=== PATIENT | female | born 1990 | race Hispanic/Latino ===

== ENCOUNTER 2018-08-22 17:24 | Emergency (ER) | payer OTHER ==
[2018-08-22] MEDS ORDERED: KETOROLAC 30 MG/ML INJ ONE (18:01)
[2018-08-22] MEDS ORDERED: ONDANSETRON 4 MG/2 ML VIAL ONE (18:02)
[2018-08-22] MEDS ORDERED: FAMOTIDINE 20 MG/2 ML VIAL IV ONE (18:02)
[2018-08-22] MEDS ORDERED: NA CHLORIDE 0.9% 1,000 ML ONE (18:02)
[2018-08-22 18:16] LABS: Absolute Lymphocytes (CBC) 1.9 K/uL (0.7-4.9); Absolute Monocytes 0.5 K/uL (0.1-1.3); Absolute Neutrophil 6.3 K/uL (1.8-8.0); Basophils % 0.4 % (0-1.3); Eosinophils % 1.1 % (0-4.4); Hematocrit 38.6 % (36.0-45.0); Lymphocytes % 21.2 % (15.3-44.8); MPV 7.9 fL (7.6-11.3); Monocytes % 5.3 % (3.3-12.3); RBC Red Blood Cell Count 4.49 M/uL (3.86-4.86)
[2018-08-22 18:20] LABS: Urine Blood 2+ (NEG); Urine Glucose NEGATIVE (NEG); Urine Protein NEGATIVE (NEG)
[2018-08-22 18:26] LABS: Urine Bacteria 20-50 /HPF (<20); Urine Culture Reflex Order REFLEXED; Urine RBC 20-50 /HPF (NONE SEEN)
[2018-08-22 18:29] LABS: ALT/SGPT 27 U/L (12-78); AST/SGOT 13 U/L (15-37); Albumin 3.7 g/dL (3.4-5.0); Alkaline Phosphatase 95 U/L (45-117); BUN Blood Urea Nitrogen 13 mg/dL (7-18); Bicarbonate 29 mmol/L (21-32); Bilirubin Direct < 0.1 mg/dL (0-0.2); Bilirubin Total 0.3 mg/dL (0.2-1.0); Glucose Level 95 mg/dL (74-106); Lipase 103 U/L (73-393); Potassium 3.5 mmol/L (3.5-5.1); Protein, Total 7.7 g/dL (6.4-8.2); Sodium Level 138 mmol/L (136-145)
--- NOTE | 2018-08-22 18:38 | RAD REPORT ---
EXAM DESCRIPTION: CT - Stone Protocol - 08/22/2018 6:25 pm CLINICAL HISTORY: Bilateral lower back pain COMPARISON: None. TECHNIQUE: Axial 5 mm thick images were obtained without oral or IV contrast. The [id number] span s the entirety of the system partially obscuring uppermost abdomen and lung bases. All CT scans are performed using dose optimization technique as appropriate and may include automated exposure control or mA/KV adjustment according to patient size. FINDINGS: No hydronephrosis and no obstructing ureteral calculi. Patient has a punctate 2 millimeter calcification lower pole calyx on the right and a 4 millimeter nonobstructing calculus lower pole ca lyx on the left. There is a 2 millimeter calcification upper pole on the left. No suspicious renal ma sses. Isodense masses and pyelonephritis are not excluded on a stone protocol CT scan. Contracted uri nary bladder shows no calculus. Bladder assessment is limited. No significant adrenal finding. Uterus and ovaries show no suspicious findings. Imaged portions of the liver, spleen and pancreas show no suspicious findings on non-contrast imaging . Liver shows mild fatty infiltration. Cholecystectomy clips are present with no biliary tree dilatat ion. No suspicious bowel findings. No hernia, mass or bulky lymphadenopathy noted. No free air, free fluid or inflammatory stranding. No significant bony abnormality. No muscle or soft tissue suspicious finding. IMPRESSION: No hydronephrosis, obstructing calculus or acute finding. Patient has nonobstructing 2-4 mm calyx calculi in each kidney. Isodense masses and pyelonephritis are not excluded on stone protocol technique.Overall assessment is limited in the absence of IV contrast. Mild fatty infiltration of the liver. Cholecystectomy clips are present with no biliary tree dilatati on.
[2018-08-22] MEDS ORDERED: MORPHINE 4 MG/ML SYR ONE (18:54)
[2018-08-22] MEDS ORDERED: CEFTRIAXONE/SWI 1gm 1 GM/10 ML SYR ONE (18:59)
--- NOTE | 2018-08-22 19:12 | EDPHYS ---
Physician Documentation [facility] Name: Mitzi Betancourt Age: 28 yrs Sex: Female : 1990 Arrival Date: 08/22/2018 Time: 17:28 Bed 19 Private MD: MARIA LUISA Physician Trell Camacho HPI: 08/22 17:49 This 28 yrs old Female presents to ER via Ambulatory with complaints of cp Possible Kidney Stone, Vomiting. 17:49 The patient complains of pain in the left flank. cp 17:50 The pain radiates to the back and abdomen. cp 17:50 Onset: The symptoms/episode began/occurred 2 day(s) ago. Associated signs and symptoms: cp Pertinent positives: nausea, vomiting, Pertinent negatives: diarrhea, dizziness, fever, pain radiating to the lower extremities. Historical: - Allergies: 17:31 PENICILLINS; sv - PSHx: 17:31 Cholecystectomy; ; sv - Immunization history:: Adult Immunizations up to date. - Social history:: Smoking status: Patient/guardian denies using tobacco. - Ebola Screening: : Patient negative for fever greater than or equal to 101.5 degrees Fahrenheit, and additional compatible Ebola Virus Disease symptoms Patient denies exposure to infectious person Patient denies travel to an Ebola-affected area in the 21 days before illness onset No symptoms or risks identified at this time. ROS: 18:00 Constitutional: Negative for body aches, chills, fever, poor PO intake. cp 18:00 Eyes: Negative for injury, pain, redness, and discharge. cp 18:00 ENT: Negative for drainage from ear(s), ear pain, sore throat, difficulty swallowing, difficulty handling secretions. 18:00 Cardiovascular: Negative for chest pain, edema, palpitations. 18:00 Respiratory: Negative for cough, shortness of breath, wheezing. 18:00 Abdomen/GI: Positive for abdominal pain, nausea and vomiting, Negative for diarrhea, constipation, black/tarry stool, rectal bleeding. 18:00 Back: Positive for pain at rest, pain with movement, of the low back area and mid back area. 18:00 Skin: Negative for cellulitis, rash. 18:00 Neuro: Negative for altered mental status, headache, weakness. 18:00 All other systems are negative. Exam: 18:05 Constitutional: The patient appears in no acute distress, alert, awake, non-toxic, well cp developed, well nourished, uncomfortable. 18:05 Head/Face: Normocephalic, atraumatic. Eyes: Pupils equal round and reactive to light, cp extra-ocular motions intact. Lids and lashes normal. Conjunctiva and sclera are non-icteric and not injected. Cornea within normal limits. Periorbital areas with no swelling, redness, or edema. ENT: Nares patent. No nasal discharge, no septal abnormalities noted. Tympanic membranes are normal and external auditory canals are clear. Oropharynx with no redness, swelling, or masses, exudates, or evidence of obstruction, uvula midline. Mucous membranes moist. Chest/axilla: Normal chest wall appearance and motion. Nontender with no deformity. No lesions are appreciated. 18:05 Cardiovascular: Rate: tachycardic, Rhythm: regular, Edema: is not appreciated. 18:05 Respiratory: the patient does not display signs of respiratory distress, Respirations: normal, no use of accessory muscles, no retractions, no splinting, no tachypnea, labored breathing, is not present, Breath sounds: are clear throughout, no decreased breath sounds, no stridor, no wheezing. 18:05 Abdomen/GI: Inspection: abdomen appears normal, Bowel sounds: active, all quadrants, Palpation: soft, in all quadrants, mild abdominal tenderness, in all quadrants, rebound tenderness, is not appreciated, involuntary guarding, is not appreciated. 18:05 Back: pain, that is moderate, of the low back area and mid back area, ROM is painful, Straight leg raises: of both lower extremities does not illicit pain. 18:05 Skin: cellulitis, is not appreciated, no rash present. 18:05 Neuro: Orientation: to person, place \T\ time. Mentation: is normal, Cerebellar function: is grossly normal, Motor: moves all fours, strength is normal, Sensation: is normal. Vital Signs: 17:32 BP 137 / 112; Pulse 102; Resp 18; Temp 99.4; Pulse Ox 99% ; Weight 113.4 kg; Height 5 sv ft. 4 in. (162.56 cm); 18:00 BP 118 / 63; Pulse 74; Resp 18; Pulse Ox 99% on R/A; Pain 10/10; em 19:15 BP 115 / 54; Pulse 70; Resp 18; Pulse Ox 99% ; ea 17:32 Body Mass Index 42.91 (113.40 kg, 162.56 cm) sv MDM: 17:43 Patient medically screened. cp 18:00 Differential diagnosis: nephrolithiasis, pyelonephritis, UTI, diverticulitis, cp pancreatitis. 19:10 Data reviewed: vital signs, nurses notes, lab test result(s), radiologic studies, CT cp scan. 19:10 Counseling: I had a detailed discussion with the patient and/or guardian regarding: the cp historical points, exam findings, and any diagnostic results supporting the discharge/admit diagnosis, lab results, radiology results, to return to the emergency department if symptoms worsen or persist or if there are any questions or concerns that arise at home. Response to treatment: the patient's symptoms have markedly improved after treatment, and as a result, I will discharge patient. 08/22 17:48 Order name: Basic Metabolic Panel; Complete Time: 18:43 cp 08/22 17:48 Order name: CBC with Diff; Complete Time: 18:43 cp 08/22 18:43 Interpretation: Normal except: MCV 86.1. cp 08/22 17:48 Order name: Creatinine for Radiology; Complete Time: 18:43 cp 08/22 17:48 Order name: Hepatic Function; Complete Time: 18:43 cp 08/22 18:43 Interpretation: Normal except: AST 13; GLOB 4.0; A/G 0.9. cp 08/22 17:48 Order name: Lipase; Complete Time: 18:43 cp 08/22 17:48 Order name: Urine Microscopic Only; Complete Time: 18:43 cp 08/22 18:43 Interpretation: Normal except: URBC 20-50; UBACT 20-50. cp 08/22 17:49 Order name: CT Stone Protocol; Complete Time: 18:43 cp 08/22 18:09 Order name: Urine Dipstick--Ancillary (enter results); Complete Time: 18:43 eb 08/22 18:46 Interpretation: Normal except: UBLD 2+; UESTR TRACE. cp 08/22 18:09 Order name: Urine --Ancillary (enter results); Complete Time: 18:43 eb 08/22 18:28 Order name: Urine Culture EDID 08/22 17:48 Order name: IV Saline Lock; Complete Time: 18:25 cp 08/22 17:48 Order name: Labs collected and sent; Complete Time: 18:25 cp 0208 17:48 Order name: Urine Dipstick-Ancillary (obtain specimen); Complete Time: 18:25 cp 08 17:48 Order name: Urine Test (obtain specimen); Complete Time: 18:25 cp /08 19:03 Order name: PO challenge; Complete Time: 19:22 cp Administered Medications: 18:10 Drug: NS 0.9% 1000 ml Route: IV; Rate: 1 bolus; Site: right antecubital; em 19:10 Follow up: Response: No adverse reaction; IV Status: Completed infusion; IV Intake: ea 1000ml 18:12 Drug: Zofran 4 mg Route: IVP; Site: right antecubital; aa5 18:46 Follow up: Response: No adverse reaction em 18:12 Drug: Pepcid 20 mg Route: IVP; Site: right antecubital; aa5 18:46 Follow up: Response: No adverse reaction em 18:12 Drug: TORadol 30 mg Route: IVP; Site: right antecubital; aa5 18:46 Follow up: Response: No adverse reaction; Pain is unchanged, physician notified em 18:56 Drug: Rocephin - (cefTRIAXone) 1 grams {Note: administered slow IVP per pharmacy at [facility] this time. .} Route: IVPB; Infused Over: 30 mins; Site: right antecubital; 19:10 Follow up: Response: No adverse reaction; IV Status: Completed infusion ea 18:56 Drug: morphine 4 mg Route: IVP; Site: right antecubital; [facility] 19:22 Follow up: Response: No adverse reaction; Pain is decreased ea Disposition: 08/22/18 19:12 Discharged to Home. Impression: Calculus of kidney - bilateral, Urinary tract infection, site not specified. - Condition is Stable. - Discharge Instructions: Bacteremia, Kidney Stones, Urinary Tract Infection, Adult. - Prescriptions for Zofran 4 mg Oral Tablet - take 1 tablet by ORAL route every 12 hours As needed; 20 tablet. Cipro 500 mg Oral Tablet - take 1 tablet by ORAL route every 12 hours for 7 days; 14 tablet. Tramadol 50 mg Oral Tablet - take 1 tablet by ORAL route every 8 hours as needed; 15 tablet. Ibuprofen 800 mg Oral Tablet - take 1 tablet by ORAL route every 8 hours As needed take with food; 30 tablet. - Medication Reconciliation Form, Thank You Letter, Antibiotic Education, Prescription Opioid Use form. - Follow up: Jarrod Honeycutt MD; When: 2 - 3 days; Reason: pain continues. - Problem is new. - Symptoms have improved. Addendum: 08/25/2018 09:04 Co-signature as Attending Physician, Trell Camacho MD I agree with the assessment and c guzman plan of care. Signatures: Dispatcher [employer] Nena Gonzalez, RN RN Trell Carlos MD MD cha Munoz, Edgar, REFUELER REFUELER em Yessy Abarca, RN RN aa5 Trell Olivas PA PA cp Antunez, Elena RN RN ea Corrections: (The following items were deleted from the chart) 08/22 19:25 19:12 08/22/2018 19:12 Discharged to Home. Impression: Calculus of kidney - bilateral; ea Urinary tract infection, site not specified. Condition is Stable. Forms are Medication Reconciliation Form, Thank You Letter, Antibiotic Education, Prescription Opioid Use. Follow up: Jarrod Honeycutt; When: 2 - 3 days; Reason: pain continues. Problem is new. Symptoms have improved. cp
--- NOTE | 2018-08-22 19:12 | ER ---
Nurse's Notes [facility] Name: Mitzi Betancourt Age: 28 yrs Sex: Female : 1990 Arrival Date: 08/22/2018 Time: 17:28 Bed 19 Private MD: Diagnosis: Calculus of kidney-bilateral;Urinary tract infection, site not specified Presentation: 08/22 17:29 Presenting complaint: Patient states: bilateral low back pain, started on the left sv flank area first, n/v/diffuse abd pain x 2 days. Transition of care: patient was not received from another setting of care. Onset of symptoms was August 20, 2018. Care prior to arrival: None. 17:29 Method Of Arrival: Ambulatory sv 17:29 Acuity: LION 3 sv 18:00 Risk Assessment: Do you want to hurt yourself or someone else? Patient reports no em desire to harm self or others. Initial Sepsis Screen: Does the patient meet any 2 criteria? No. Patient's initial sepsis screen is negative. Does the patient have a suspected source of infection? No. Patient's initial sepsis screen is negative. Triage Assessment: 17:31 General: Appears in no apparent distress. uncomfortable, Behavior is calm, cooperative, sv appropriate for age. Pain: Complains of pain in low back area and abdomen Pain currently is 8 out of 10 on a pain scale. Neuro: Level of Consciousness is awake, alert, obeys commands, Oriented to person, place, time, situation, Moves all extremities. Full function Gait is steady. Respiratory: Respiratory effort is even, unlabored, Respiratory pattern is regular, symmetrical. GI: Reports lower abdominal pain, upper abdominal pain, nausea, vomiting. Historical: - Allergies: 17:31 PENICILLINS; sv - PSHx: 17:31 Cholecystectomy; ; sv - Immunization history:: Adult Immunizations up to date. - Social history:: Smoking status: Patient/guardian denies using tobacco. - Ebola Screening: : Patient negative for fever greater than or equal to 101.5 degrees Fahrenheit, and additional compatible Ebola Virus Disease symptoms Patient denies exposure to infectious person Patient denies travel to an Ebola-affected area in the 21 days before illness onset No symptoms or risks identified at this time. Screenin:00 Abuse screen: Denies threats or abuse. Nutritional screening: No deficits noted. em Tuberculosis screening: No symptoms or risk factors identified. Fall Risk None identified. Assessment: 17:50 General: Appears uncomfortable, Behavior is calm, cooperative, Denies fever. Pain: em Complains of pain in low back area Pain currently is 10 out of 10 on a pain scale. Pain began 2-3 days ago. Neuro: Level of Consciousness is awake, alert, obeys commands, Oriented to person, place, time, situation. Cardiovascular: Patient's skin is warm and dry. Respiratory: Airway is patent Respiratory effort is even, unlabored, Respiratory pattern is regular, symmetrical. GI: Abdomen is round obese, Bowel sounds present X 4 quads. Abd is soft X 4 quads Abdomen is tender to palpation in right lower quadrant and left lower quadrant Reports nausea, vomiting, Patient currently denies diarrhea. : Urine is clear, Denies burning with urination, discharge, vaginal bleeding. Derm: Skin is intact, is healthy with good turgor, Skin is pink, warm \T\ dry. Musculoskeletal: Range of motion: intact in all extremities. 17:50 Reassessment: I agree with assessment completed by Oliver Green LVN. aa5 19:22 Reassessment: Patient and/or family updated on plan of care and expected duration. Pain ea level reassessed. Patient is alert, oriented x 3, equal unlabored respirations, skin warm/dry/pink. Discharge instructions given to patient, verbalized the understanding of instruction. Patient states feeling better. Patient states symptoms have improved. Vital Signs: 17:32 BP 137 / 112; Pulse 102; Resp 18; Temp 99.4; Pulse Ox 99% ; Weight 113.4 kg; Height 5 sv ft. 4 in. (162.56 cm); 18:00 BP 118 / 63; Pulse 74; Resp 18; Pulse Ox 99% on R/A; Pain 10/10; em 19:15 BP 115 / 54; Pulse 70; Resp 18; Pulse Ox 99% ; ea 17:32 Body Mass Index 42.91 (113.40 kg, 162.56 cm) sv ED Course: 17:28 Patient arrived in ED. sb2 17:31 Triage completed. sv 17:31 Arm band placed on. sv 17:43 [facility]ivas [facility]. cp 17:43 Trell Camacho MD is Attending Physician. cp 17:44 Oliver Green LVN is Primary Nurse. em 17:51 Radiology exam delayed due to test not completed at this time. vr 18:00 Patient has correct armband on for positive identification. Placed in gown. Bed in low em position. Call light in reach. Side rails up X2. Pulse ox on. NIBP on. 18:00 Initial lab(s) drawn, by me, sent to lab. Inserted saline lock: 20 gauge in right em antecubital area, using aseptic technique. Blood collected. 18:25 CT Stone Protocol In Process Unspecified. EDMS 19:11 Jarrod Honeycutt MD is Referral Physician. cp 19:23 No provider procedures requiring assistance completed. IV discontinued, intact, ea bleeding controlled, No redness/swelling at site. Pressure dressing applied. Administered Medications: 18:10 Drug: NS 0.9% 1000 ml Route: IV; Rate: 1 bolus; Site: right antecubital; em 19:10 Follow up: Response: No adverse reaction; IV Status: Completed infusion; IV Intake: ea 1000ml 18:12 Drug: Zofran 4 mg Route: IVP; Site: right antecubital; aa5 18:46 Follow up: Response: No adverse reaction em 18:12 Drug: Pepcid 20 mg Route: IVP; Site: right antecubital; aa5 18:46 Follow up: Response: No adverse reaction em 18:12 Drug: TORadol 30 mg Route: IVP; Site: right antecubital; aa5 18:46 Follow up: Response: No adverse reaction; Pain is unchanged, physician notified em 18:56 Drug: Rocephin - (cefTRIAXone) 1 grams {Note: administered slow IVP per pharmacy at [facility] this time. .} Route: IVPB; Infused Over: 30 mins; Site: right antecubital; 19:10 Follow up: Response: No adverse reaction; IV Status: Completed infusion ea 18:56 Drug: morphine 4 mg Route: IVP; Site: right antecubital; aa5 19:22 Follow up: Response: No adverse reaction; Pain is decreased ea Intake: 19:10 IV: 1000ml; Total: 1000ml. ea Outcome: 19:12 Discharge ordered by MD. cp 19:24 Discharged to home ambulatory, with significant other. ea 19:24 Condition: improved 19:24 Discharge instructions given to patient, Instructed on discharge instructions, follow up and referral plans. medication usage, Demonstrated understanding of instructions, follow-up care, medications, Prescriptions given X 4. 19:25 Patient left the ED. di Addendum: 08/27/2018 07:48 Addendum: Culture Results: Positive urine culture. No further action required. Bacteria s s sensitive to prescribed antibiotic. Signatures: Dispatcher [employer] Nena Gonzalez, RN RN Oliver De La Rosa, RESEARCH MANAGEMENT ASSOCIATE RESEARCH MANAGEMENT ASSOCIATE Yessy Martínez RN RN Jazmyne Olmstead RN Pennie Roberts Corey, PA PA cp Antunez, Elena RN RN Tabby Bailey sb2
[2018-08-22 19:31] VITALS: TEMP 99.4; O2SAT 99
[2018-08-22 19:33] VITALS: BP 115/54
== END 2018-08-22 19:25 | disposition home or self-care (01) ==
LOC: ER 17:24
DX: N39.0 Urinary tract infection, site not specified (principal); N20.0 Calculus of kidney; Z88.0 Allergy status to penicillin
CPT/HCPCS: 36415; 74176; 76377; 80048; 80076; 81003; 81015; 81025; 83690; 85025; 87077; 87086; 87088; 87186; 96361; 96374; 96375; 99284; J0696; J2405; J7030

== ENCOUNTER 2020-05-05 22:06 | Emergency (ER) | payer OTHER ==
--- OUTSIDE RECORDS SUMMARY | 2020-05-05 22:09 | XMS REPORT | Continuity of Care Document ---
:[address] [facility] t Address [address] [place] [address] Care Team Providers Name Role Phone Unavailable Unavailable Unavailable Payers Payer Name Policy Type Policy Number Effective Date Expiration Date S ource Problems This patient has no known problems. Allergies, Adverse Reactions, Alerts Allergy Allergy Status Severity Reaction(s) Onset Inactive Treating Comm ents Source Name Type Date Date Clinician Penicill DA Active U 0 [facility] Penicill DA Active [facility] 0 [facility] [place] Medications This patient has no known medications. Procedures This patient has no known procedures. Results Test Description Test Time Test Comments Results Result [facility] e Comments [facility] 2020-02-03 TRIMESTER 12:31:00 --------RUN DATE: 02/03/20 [facility] PAGE 1 RUN TIME: 1817 Specimen Inquiry RUN USER: INTERFACE --------PATIENT: TRINIDAD RUTLEDGE LOC: JENNIFER U #: [id number] AGE/SX: 29/ ROOM: [facility] RE01/31/20REG DR: Nusrat Coy III, MD : 88 BED: A DIS: 02/03/20 STATUS: DIS IN TLOC: -------- SPEC #: [id number] RECD: 01/31/20-917 STATUS: DIOGO REYancy #: [id number] LADONNA: 01/31/20- SUBM DR: Nusrat Coy III, MD ENTERED: 02/01/20 SP TYPE: PLACIII MARINA DR: ORDERED: LEVEL V SURGICA/3 CODES: [id number] - FALLOPIAN TUBE [id number] - PLACENTA, NOS PROCEDURES: LEVEL V SURGICA (Incomplete) TISSUES: PLACENTA, NOS - PLACENTA FALLOPIAN TUBE, NOS - BILATERAL FALLOPIAN TUBES CLINICAL HISTORY 29 year old, 35.6 weeks, [id number], repeat section, prematurity <37 weeks, BTL (wpd) FINAL DIAGNOSIS Specimen #1 right fallopian tube, segmental resection: - histologic - complete lumen demonstrated Specimen #2 left fallopian tube, segmental resection: - histologic - complete lumen demonstrated Specimen #3 placenta, godoy gestation (35.6 weeks): - third trimester villous architecture - intervillous fibrin thrombus - umbilical cord: insertion 12 cm from margin, 3-vessel, 25 cm length - placental weight: actual 385 gms/expected 411 gms CPT Code: 97157 x2, 31488 cds/wpd GROSS DESCRIPTION ANATOMIC SOURCE OF TISSUE (per Requisition): 1. Tube segments (received in 2 containers) 2. Placenta Each specimen is labeled with the patient's name and medical record number. CONTINUED ON NEXT PAGE --------RUN DATE: 02/03/20 [facility] PAGE 2 RUN TIME: 1816 Specimen Inquiry RUN USER: INTERFACE --------SPEC #: [id number] PATIENT: TRINIDAD RUTLEDGE ALBERTO #[id number] (Continued) GROSS DESCRIPTION (Continued) Specimen #1 is designated "right tube" and consists of a 3.0 x 0.7 cm decker-rios tubular tissue with fimbriae. Sectioning reveals a pinpoint lumen. Applied Exercise Physiologist sections are submitted and labeled A1. Specimen #2 is designated "left tube" and consists of a 3.0 x 0.8 cm decker-rios tubular tissue with fimbriae. Sectioning reveals a pinpoint lumen. Applied Exercise Physiologist sections are submitted and labeled B1. Specimen #3 was received in a container, labeled with the patient's name, unit number and designated "placenta". The following attributes are observed: Cord insertion: 12 cm from margin Cord length: 25 cm Number of vessels: 3 Cord color: Decker-white Other cord findings: None Membranes rupture site: Undetermined Membrane color: Decker-pink Other membrane findings: Focally opaque, disrupted The trimmed placental weight: 385 gm Disk measurement: 16 x 15 x 3 cm in greatest dimension Accessory lobes: None surface findings: Blue-purple, wrinkled, glistening Vasculature: Displays unremarkable blood vasculature Maternal surface: Lobulated and disrupted, completeness cannot be determined Parenchyma: Red-brown and spongy Parenchyma lesions: None Cassettes: C1 through C4 allan 02/01/20 Signed Edward Borrego 02/03/20 1231 -------- END OF REPORT HGB HCT 2020-02-01 06:50:00 Test Item Value Reference Range Interpretation Comme nts HEMOGLOBIN (test code = HGB) 9.7 g/dL 10.7-13.9 L HEMATOCRIT (test code = HCT) 30.6 % 32.1-42.1 L CAPILLARY BLOOD [id number] 04:38:00 Test Item Value Reference Range Interpretation Comments CAPILLARY BLOOD GAS PH (test code 7.277 7.35-7.45 L = PHC) CAPILLARY BLOOD GAS PCO2 (test 56.4 mmHg code = PCO2C) CAPILLARY BLOOD GAS PO2 (test code 14.5 mmHg = PO2C) CBG HCO3 (test code = HCO3C) 25.7 meq/L CBG BASE EXCESS (test code = BEC) -2.1 CAPILLARY BLOOD GAS TYPE (test CBLA code = TYPEC) CAPILLARY BLOOD GAS FIO2 (test 21.0 % code = FIO2C) CAPILLARY BLOOD [id number] 04:38:00 Test Item Value Reference Range Interpretation Comments CAPILLARY BLOOD GAS PH (test code 7.347 7.35-7.45 L = PHC) CAPILLARY BLOOD GAS PCO2 (test 44.9 mmHg code = PCO2C) CAPILLARY BLOOD GAS PO2 (test code 23.0 mmHg = PO2C) CBG HCO3 (test code = HCO3C) 24.1 meq/L CBG BASE EXCESS (test code = BEC) -1.8 CBG O2 SATURATION (test code = 37.0 % SATC) CAPILLARY BLOOD GAS TYPE (test CBLV code = TYPEC) CAPILLARY BLOOD GAS FIO2 (test 21.0 % code = FIO2C) AG HEPATITIS B [id number] 03:05:00 Test Item Value Reference Range Interpretation Comments AG HEPATITIS B SURFACE (test code NONREACTIVE NONREACTIVE = HBSAG) IS CONSENT FORM SIGNED FOR HIV TESTING? NAB HEPATITIS C [id number] 03:05:00 Test Item Value Reference Range Interpretation Comments AB HEPATITIS C (test code = NONREACTIVE NONREACTIVE HCVAB) SIGNAL TO CUTOFF (test code = 0.03 <0.80 N CUTOFF) IS CONSENT FORM SIGNED FOR HIV TESTING? NAB [id number] 03:05:00 Test Item Value Reference Range Interpretation Comments AB TREPONEMA (test code = TREPAB) NONREACTIVE NONREACTIVE IS CONSENT FORM SIGNED FOR HIV TESTING? NAB HIV 1 03:05:00 Test Item Value Reference Range Interpretation Comments AB HIV 1 2 (test NONREACTIVE NONREACTIVE Done by [facility] code = [id number]) 4th Gen HIV Ag/Ab Combo Screen IS CONSENT FORM SIGNED FOR HIV TESTING? NAG HEPATITIS B [id number] 03:03:00 Test Item Value Reference Range Interpretation Comments AG HEPATITIS B SURFACE (test code NONREACTIVE NONREACTIVE = HBSAG) IS CONSENT FORM SIGNED FOR HIV TESTING? NAB HEPATITIS C [id number] 03:03:00 Test Item Value Reference Range Interpretation Comments AB HEPATITIS C (test code = NONREACTIVE NONREACTIVE HCVAB) SIGNAL TO CUTOFF (test code = 0.03 <0.80 N CUTOFF) IS CONSENT FORM SIGNED FOR HIV TESTING? NAB [id number] 03:03:00 Test Item Value Reference Range Interpretation Comments AB TREPONEMA (test code = TREPAB) NONREACTIVE NONREACTIVE IS CONSENT FORM SIGNED FOR HIV TESTING? NAB HIV 1 03:03:00 Test Item Value Reference Range Interpretation Comments AB HIV 1 2 (test code = [id number]) NONREACTIVE IS CONSENT FORM SIGNED FOR HIV TESTING? NAG HEPATITIS B [id number] 02:49:00 Test Item Value Reference Range Interpretation Comments AG HEPATITIS B SURFACE (test code NONREACTIVE NONREACTIVE = HBSAG) IS CONSENT FORM SIGNED FOR HIV TESTING? NAB HEPATITIS C [id number] 02:49:00 Test Item Value Reference Range Interpretation Comments AB HEPATITIS C (test code = HCVAB) NONREACTIVE SIGNAL TO CUTOFF (test code = CUTOFF) <0.80 IS CONSENT FORM SIGNED FOR HIV TESTING? NAB [id number] 02:49:00 Test Item Value Reference Range Interpretation Comments AB TREPONEMA (test code = TREPAB) NONREACTIVE NONREACTIVE IS CONSENT FORM SIGNED FOR HIV TESTING? NAB HIV 1 02:49:00 Test Item Value Reference Range Interpretation Comments AB HIV 1 2 (test code = [id number]) NONREACTIVE IS CONSENT FORM SIGNED FOR HIV TESTING? NCOVID 19 Asymptomatic IH [id number] 02:15:00 Test Item Value Reference Range Interpretation Comments COVID 19 NEGATIVE NEGATIVE This test has b een Asymptomatic IH AG authorize d only for the (test code = detection ofpro teins from COVNONPUIAG) SARS-CoV-2, not for any other viruses orpathogens. N egative results should be treated as presumptive andconfirmed wi th a molecular assay , if necessary for patientmanageme nt. Negative result s do not rule out COVID- 19 andshould not b e used as the sole basis for treatment orpat ient management deci sions, including infec tion controldecision s. Negative result s should be considered i n thecontext of a patient's recent exposure s, history and thepresence of clinical signs and symptoms consis tent withCOVID-19. T his test has not been FD A cleared or approved; th e test hasbeen authornavin guerra by FDA under an Emerge ncy Use Authorization(E UA) for use by laborato bernard certified under the CLIA thatmeet the re quirements to perform mode rate, high or waivedcomple xity tests. This jaycee t is authorized for use at thePoint of Car e (POC), i.e., in patien t care settingsoperati ng under a CLIA Certificat e of Waiver, Certifi yosi ofCompliance, o r Certificate of Accreditation. This test is only authori charlie for the duration of thedeclaration that circumstances e xist justifying theauthorizatio n of emergency use o f in vitro diagnostic test sfor detection and/o r diagnosis of CO VID-19 under Sxpriqb41 4(b)(1) of the Act, 21 U.S .C. 360bbb-3(b)(1), unless theauthorizatio n is terminated or r evoked sooner. COMPREHENSIVE METABOLIC [id number] 02:11:00 Test Item Value Reference Range Interpretation Comments SODIUM (test code = NA) 136 mEq/L 135-145 N POTASSIUM (test code = K) 3.9 mEq/L 3.5-5.0 N CHLORIDE (test code = CL) 101 mEq/L 100-115 N CARBON DIOXIDE (test code = CO2) 23 mEq/L 22-31 N ANION GAP (test code = GAP) 15.70 10-20 N GLUCOSE (test code = GLU) 94 mg/dL 65-110 N BLOOD UREA NITROGEN (test code = 8 mg/dL 7-18 N BUN) GLOMERULAR FILTRATION RATE (test 145 ml/min >60 N code = GFR) CREATININE (test code = CREAT) 0.5 mg/dL 0.5-1.0 N TOTAL PROTEIN (test code = PROT) 6.2 gm/dL 6.3-8.2 L ALBUMIN (test code = ALB) 2.6 gm/dL 3.4-4.8 L CALCIUM (test code = CA) 8.7 mg/dL 8.4-10.2 N BILIRUBIN TOTAL (test code = 0.4 mg/dL 0.2-1.0 N BILT) SGOT/AST (test code = AST) 24 units/L 15-37 N SGPT/ALT (test code = ALT) 18 units/L 12-78 N ALKALINE PHOSPHATASE TOTAL (test 110 units/L 46-116 N code = ALKP) CBC W/AUTO [id number] 01:46:00 Test Item Value Reference Range Interpretation Comments WHITE BLOOD CELL (test code = WBC) 9.4 K/mm3 6.6-12.1 N RED BLOOD CELL (test code = RBC) 3.91 M/mm3 3.45-5.01 N HEMOGLOBIN (test code = HGB) 11.6 g/dL 10.7-13.9 N HEMATOCRIT (test code = HCT) 36.4 % 32.1-42.1 N MEAN CELL VOLUME (test code = MCV) 93 fL 84.1-94.8 N MEAN CELL HGB (test code = MCH) 29.7 pg 27-35 N MEAN CELL HGB CONCETRATION (test 31.9 gm/dL 32.2-34.1 L code = MCHC) RED CELL DISTRIBUTION WIDTH (test 14.6 % 12.4-16.5 N code = RDW) PLATELET COUNT (test code = PLT) 244 K/mm3 133-385 N MEAN PLATELET VOLUME (test code = 10.1 fl 9.1-12.7 N MPV) NEUTROPHIL % (test code = NT%) 69.7 % 56.5-79.4 N LYMPHOCYTE % (test code = LY%) 23.8 % 14.3-34.3 N MONOCYTE % (test code = MO%) 5.6 % 5.1-10.4 N EOSINOPHIL % (test code = EO%) 0.5 % 0.1-3.0 N BASOPHIL % (test code = BA%) 0.2 % 0.1-1.0 N NEUTROPHIL # (test code = NT#) 6.5 K/mm3 LYMPHOCYTE # (test code = LY#) 2.2 K/mm3 MONOCYTE # (test code = MO#) 0.5 K/mm3 EOSINOPHIL # (test code = EO#) 0.05 K/mm3 BASOPHIL # (test code = BA#) 0.0 K/mm3 RBC MORPHOLOGY REQUIRED (test code NORMAL NORMAL = RBCM) PLATELET MORPHOLOGY REQUIRED (test NORMAL NORMAL code = PLTMR) - US FLW [id number] 16:22:00 Patient Name: TRINIDAD RUTLEDGE Unit No: [id number] EXAMS: [place]: [id number] [place] [address] [facility] [address] [place], [place] [address] OBSTETRICAL ULTRASOUND REPORT Pat. Name: TRINIDAD RUTLEDGE Pat. No: [id number] Date: 01/05/2020 2:49pm , Age: 08 1990, 29 Pregnancies: 4, Para 3 LMP: 05/31/2019 GA by LMP: 31w2d GA by 1st: 29w6d GA by US: 29w1d GA Selected: 29w6d (From First S) AMERICO: 03/16/2020 Referring MD: Nusrat Coy Slate Worker: Angel Barreto RDMS CPT4: USPREGFU Admitting MD: Nusrat Coy Hist/Ind: Heart Anatomy Weight OB F/U Scan #3 MEASUREMENTS AGE GROWTH EVALUATION Measurement GA Range Srce %for GA Ratios ----- ---- ------- BPD 7.1 cm 28w5d (68w1z-84i6w) Hadl BPD 16% FL/BPD 0.78 (0.71 - 0.87) HC 27.8cm 30w1d (53b3j-82g4b) Hadl HC 54% FL/AC 0.22 (0.20 - 0.24) APD 8.2 cm APD HC/AC 1.10 (0.98 - 1.17) TAD 7.9 cm TAD CI 0.73 (0.70 - 0.86) AC 25.3 cm 29w3d (65m9t-46j4x) Hadl AC 42% FL 5.6 cm 29w0d (07y9d-19x4q) Hadl FL 31% HL 4.9 cm 29w0d (44p8t-27k9i) Chas HL 35% GA for sonogram 29w1d (46o9s-42g0a) Weight Estimate: based on (BPD,HC,AC,FL) Hadlock Weight: 1394 gm (5038-3020) Hadlo : 3lbs, 1oz Normal: 1439 gm (4457-7352) Brenn Wt% 46% for 29.9 wks Cervical Length: 4.5 cm HeartRate: 135 bpm Amniotic Fluid Index: 11.7cm (09.0- 23.4) Q1: 5.0cm Q2: 3.7cm Q3: 1.8cm Q4: 1.2cm CLINICAL SUMMARY Typeof Gestation: Godoy Intrauterine in breech presentation. size is appropriate for gestational age. growth: Consistent with normal growth motion and organs seen: heart motion seen Four chamber heart observed Left ventricular outflow tract (LVOT) seen [facility] NAME: TRINIDAD RUTLEDGE Radiology Department PHYS: Nusrat Delong III, MD [address] : 1990 AGE: 29 SEX: F [place], [place] [address] LOC: MIRNA PHONE #: [phone] EXAM DATE: 01/05/2020 STATUS: REG CLI FAX #: [phone] RAD NO: Page 1 Signed Report (CONTINUED) Patient Name: TRINIDAD RUTLEDGE Unit No: [id number] EXAMS: CPT CODE: [id number] [place] FLW UP 11658 <Continued> Right ventricular outflow tract (RVOT) seen Body habitus limits exam Difficult to image abnormalities observed: None seen at this exam Body habitus limits exam Difficult to image Placental location: Anterior Placental maturity : Grade 1 There is no evidence of placentaprevia. Amniotic fluid volume is normal. Uterus and adnexa: No significant abnormality is seen. Regina Thompson M.D. Electronic Signature 01/05/2020 04:22pm at 1622 Reported and signed by: Regina Thompson MD CC: Nusrat Coy III, MD Technologist: Angel Barreto RDMS Probe: Trnscrbd D/ (1622) t.SDR.NMG Orig Print D/T: S: 01/05/2020 (1622) [facility] NAME: TRINIDAD RUTLEDGE Radiology Department PHYS: Nusrat Valdes III, MD [address] : 1990 AGE: 29 SEX: F [place] [address] LOC: F.RAD PHONE #: [phone] EXAM DATE: 01/05/2020 STATUS: REG CLI FAX #: [phone] RAD NO: Page 2 Signed Report Patient Name: TRINIDAD RUTLEDGE Unit No: [id number] EXAMS:CPT CODE: [id number] [place] UP [address] <Continued> [facility] NAME: TRINIDAD RUTLEDGE Radiology Department PHYS: Nusrat Delong III, MD [address] : 1990 AGE: 29 SEX: F [place] [address] LOC: F.RAD PHONE #: [phone] EXAM DATE: 01/05/2020 STATUS: JILLIAN JONES FAX #: [phone] RAD NO: Page 3 Signed Report- US PREG AFTER 2019-11-12 13:10:00 Patient Name: TRINIDAD RUTLEDGE Unit No: [id number] EXAMS: CPT CODE: [id number] US PREG AFTER [address] [facility] [address] [place], [place] [address] OBSTETRICAL ULTRASOUND REPORT Pat. Name: TRINIDAD RUTLEDGE Pat. No: [id number] Date: 11/12/2019 11:42am , Age: 08 1990, 29 Pregnancies: 4, Para 3 LMP: 05/31/2019 GA by LMP: 23w4d GA by 1st: 22w1d GA by US: 21w6d GA Selected: 22w1d (From Known E) AMERICO: 03/16/2020 Referring MD: Nusrat Coy Slate Worker: Racheal Cisneros RDMS CPT4: YIMEFWJ2O Admitting MD: Nusrat Coy Hist/Ind: 2ND SCAN ANATOMY MEASUREMENTS AGE GROWTH EVALUATION Measurement GA Range Srce %for GA Ratios ----- ---- ------- BPD 5.3 cm 22w1d (80h4p-95p8z)Hadl BPD 51% FL/BPD 0.72 HC 19.8 cm 21w6d (71r8j-49p8f) Hadl HC 41% FL/AC 0.22 (0.20 - 0.24) APD 5.6 cm APD HC/AC 1.12 (1.04 - 1.23) TAD 5.6 cm TAD CI 0.79 (0.70 - 0.86) AC 17.6 cm 22w2d (72y7a-14p8g) Hadl AC 53% FL 3.8 cm 21w5d (76f7a-93t7y) Hadl FL 42% HL 3.6 cm 22w3d (19w5d- 25w1d) Chas HL 55% GA for sonogram 21w6d (27y3k-69q8z) Weight Estimate: based on (BPD,HC,AC,FL) Hadlock Weight: 492 gm (420-564) Hadlock : 1lbs, 1oz Normal: 490 gm (327-930) Ariane Wt% 50% for 22.1 wks Cervical Length: 4.0 cm Heart Rate: 148 bpm MATERNAL ANATOMY Ovaries LxHxW (cm) Right 2.7 x 1.1 x 3.0 Vol: 4.7cc Left 2.3 x 1.6 x 1.9 Vol: 3.7cc CLINICAL SUMMARY Type of Gestation: Godoy Intrauterine in transverse presentation. size is appropriate for gestational age. motion and organs seen: heart motion seen somatic activity [facility] NAME: TRINIDAD RUTLEDGE Radiology Department PHYS: Nusrat Delong III, MD [address] : 1990AGE: 29 SEX: [place] [address] LOC: MIRNA BIGG NE #: [phone] EXAM DATE: 11/12/2019 STATUS: REG CLI FAX #: [phone] RAD NO: Page 1 Signed Report (CONTINUED) Patient Name: TRINIDAD RUTLEDGE Unit No: [id number] EXAMS: CPT CODE: [id number] US PREG AFTER 1ST TRI 91427 <Continued> body and limb movements seen Normal intracranial anatomy seen Umbilical cord insertion in fetus seen stomach, Renal Fossa, Bladder and Spine seen LIMITED EVALUATION OF HEART AND 3 VESSEL CORD. Body habitus limits exam. Placental location: Anterior Placental maturity : Grade 1 There is no evidence of placenta previa. Amniotic fluid volume is normal. Uterus and adnexa: No significant abnormality is seen. Thank you for allowing us to participate in the care of this patient. Michaelle Alvarado. Electronic Signature 11/12/2019 01:10pm at 1310 Reported and signed by: Mario Alberto Decker MD CC: Nusrat Coy III, MD Technologist: Racheal Cisneros RDMS Probe: Trnscrbd D/ (1310) [email or web address] Orig Print D/T: S: 11/12/2019 (1310) [facility] NAME: TRINIDAD RUTLEDGE Radiology Department PHYS: Nusrat Delong III, MD [address] : 1990 AGE: 29 SEX: [place] [id number] LOC: SammiRAD PHONE #: [phone] EXAM DATE:11/12/2019 STATUS: REG CLI FAX #: [phone] RAD NO: Page 2 Signed Report Patient Name: TRINIDAD RUTLEDGEUnit No: [id number] EXAMS: CPT CODE: [id number] US PREG AFTER 1ST TRI [address]93 <Continued> [facility] NAME: TRINIDAD RUTLEDGE Radiology Department PHYS: Nusrat Delong III, MD [address] : 1990 AGE: 29 SEX: [place] [address] LOC: SammiRAD PHONE #: [phone] EXAM DATE: 11/12/2019 STATUS: REG CLI FAX #: [phone] RAD NO: Page 3 Signed Report- US PREG UT [id number] 11:24:00 Patient Name: TRINIDAD RUTLEDGE Unit No: [id number] EXAMS: CPT CODE: [id number] US PREG UT TRANSVAGINAL [address] [facility] [address] [place], [place] [address] LIMITED OBSTETRICAL ULTRASOUND REPORT Pat. Name: TRINIDAD RUTLEDGE Pat. No: [id number] Study Date: 09/28/2019 10:45am , Age: 08 1990, 29 Pregnancies: 4, Para 3 LMP: 05/31/2019 GA by LMP: 17w1d GA Selected: 15w5d (From Known E) AMERICO: 03/16/2020 Referring MD: Nusrat Coy Slate Worker: Racheal Cisneros CPT4: USPRUTTRVG Hist/Ind: 1ST SCAN TACHYCARDIA Cervical Length: 4.4 cm Heart Rate: 152 bpm MATERNAL ANATOMY Ovaries LxHxW (cm) Right 2.3x 1.7 x 1.8 Vol: 3.7cc Left 2.3 x 2.6 x 2.6 Vol: 8.1cc Ovarian Cysts LxHxW (cm) L1: 1.7 x 1.4 x 1.7 Desc: Corpus Luteum ---- CLINICAL SUMMARY Type of Gestation: Godoy Intrauterine in transverse presentation. motion and organs seen: somatic activity observed body and limb movements seen Regular cardiac rhythm observed Placental location: Anterior Placental maturity : Grade 1 There is no evidence of placenta previa. Amniotic fluid volume is normal. Uterus and adnexa: No significant abnormality is seen. RECOMMEND FOLLOW UP FOR ANATOMIC SURVEY. Thank you for allowing us to participate in the care of this patient. Lashay Valerio M.D. Electronic Signature 09/28/2019 11:24am [facility] NAME: TRINIDAD RUTLEDGE Radiology Department PHYS: Nusrat Delong III, MD [address] : 1990 AGE: 29 SEX: F [place] [address] LOC: SammiRAD PHONE #: [phone] EXAM DATE: 09/28/2019 STATUS: DEP CLI FAX #: [phone] RAD NO: Page 1 Signed Report (CONTINUED) Patient Name: TRINIDAD RUTLEDGE Unit No: [id number] EXAMS: CPT CODE: [id number] PREG UT TRANSVAGINAL [address] <Continued> at 1124 Reported and signed by: Stacey Valerio MD CC: Nusrat Coy III, MD Technologist: Racheal Cisneros RDMS Probe: [id number] Trnscrbd D/ (1124) Melvin Hoover Print D/T: S: 09/30/2019 (0933) [facility] NAME: BRE RUTLEDGEUlises DOMINGUEZ Radiology Department PHYS: Nusrat Delong III, MD [address] : 1990 AGE: 29 SEX: F [place] [address] LOC: SammiRAD PHONE #: [phone] EXAM DATE: 09/28/2019 STATUS: DEP CLI FAX #: [phone] RAD NO: Page 2 Signed Report Patient Name: TRINIDAD RUTLEDGE Unit No: [id number] EXAMS: CPT CODE: [id number] US PREG UT TRANSVAGINAL [address] <Continued> [facility] NAME: TRINIDAD RUTLEDGE Radiology Department PHYS: Nusrat Delong III, MD [address] : 1990 AGE: 29 SEX: F [place] [id number] LOC: SammiRAD PHONE #: [phone] EXAM DATE: 09/28/2019 STATUS: DEP CLI FAX #: [phone] RAD NO: Page 3 Signed Report- US [id number] 11:24:00 Patient Name: TRINIDAD RUTLEDGE Unit No: [id number] EXAMS: CPT CODE: [id number] [place] LTD [address] [facility] [address] [place], [place] [address] LIMITED OBSTETRICAL ULTRASOUND REPORT Pat. Name: TRIINDAD RUTLEDGE Pat. No: [id number] Study Date: 09/28/2019 10:45am , Age: 08 1990, 29 Pregnancies: 4, Para 3 LMP: 05/31/2019 GA by LMP: 17w1d GA Selected: 15w5d (From Known E) AMERICO: 03/16/2020 Referring MD: NUSRAT COY Slate Worker: Racheal Cisneros RDMS CPT4: USPREGLTD Admitting MD: NUSRAT COY Hist/Ind: 1ST SCAN TACHYCARDIA Cervical Length: 4.4 cm Heart Rate: 152 bpm MATERNAL ANATOMY Ovaries LxHxW (cm) Right 2.3 x 1.7 x 1.8 Vol: 3.7cc Left 2.3 x 2.6 x 2.6 Vol: 8.1cc Ovarian Cysts LxHxW (cm) L1: 1.7 x 1.4 x 1.7 Desc: Corpus Luteum ----- CLINICAL SUMMARY Type of Gestation: Godoy Intrauterine in transverse presentation. motion and organs seen: somatic activity observed body and limb movements seen Regular cardiac rhythm observed Placental location: Anterior Placental maturity : Grade 1 There isno evidence of placenta previa. Amniotic fluid volume is normal. Uterus and adnexa: No significant abnormality is seen. RECOMMEND FOLLOW UP FOR ANATOMIC SURVEY. Thank you for allowing us to participate in the care of this patient. Lashay Valerio M.D. Electronic Signature 09/28/2019 11:24am [facility] NAME: TRINIDAD RUTLEDGE ALBERTO Radiology Department PHYS: Nusrat Delong III, MD [address] : 1990 AGE: 29 SEX: F [place] [address] LOC: SammiRAD PHONE #: [phone] EXAM DATE: 09/28/2019 STATUS: REG CLI FAX #: [phone] RAD NO: Page 1 Signed Report (CONTINUED) Patient Name: TRINIDAD RUTLEDGE Unit No: [id number] EXAMS: CPT CODE: [id number] [place] LTD [address] <Continued> ElectronicallySigned by Stacey Valerio MD on 09/28/2019 at 1124 Reported and signed by: Stacey Valerio MD CC: Nusrat Coy III, MD Technologist: Racheal Cisneros RDMS Probe: Trnscrbd D/ (1124) t.SDR.CER Orig Print D/T: S: 09/28/2019 (1125) [facility] NAME: BRE RUTLEDGEUlises DOMINGUEZ Radiology Department PHYS: Nusrat Delong III, MD [address] : 1990 AGE: 29 SEX: F [place] [address] LOC: SammiRAD PHONE #: [phone] EXAM DATE: 09/28/2019 STATUS: REG CLI FAX #: [phone] RAD NO: Page 2 Signed Report Patient Name: TRINIDAD RUTLEDGE Unit No: [id number] EXAMS: CPT CODE: [id number] US LTD [address] <Continued> [facility] NAME: TRINIDAD RUTLEDGE Radiology Department PHYS: Nusrat Delong III, MD [address] : 1990 AGE: 29 SEX: F [place], [place] [address] LOC: F.RAD PHONE #: [phone] EXAM DATE: 09/28/2019 STATUS: REG CLI FAX #: [phone] RAD NO: Page 3 Signed Report
[2020-05-05] MEDS ORDERED: LIDOCAINE VISCOUS 2% SOLN 15 ML UDC ONE (23:33)
[2020-05-05] MEDS ORDERED: PANTOPRAZOLE 40 MG INJ ONE (23:33)
[2020-05-05] MEDS ORDERED: MAGNES/ALUMIN/SIMET 30ML UCUP ONE (23:33)
[2020-05-06 00:08] LABS: Absolute Lymphocytes (CBC) 2.3 K/uL (0.7-4.9); Basophils % 0.4 % (0-1.3); Hematocrit 35.3 % (36.0-45.0); Lymphocytes % 33.1 % (15.3-44.8); MPV 8.4 fL (7.6-11.3); RBC Red Blood Cell Count 4.15 M/uL (3.86-4.86)
[2020-05-06 00:23] LABS: ALT/SGPT 44 U/L (12-78); AST/SGOT 20 U/L (15-37); Albumin 3.7 g/dL (3.4-5.0); Alkaline Phosphatase 116 U/L (45-117); BUN Blood Urea Nitrogen 21 mg/dL (7-18); Bicarbonate 29 mmol/L (21-32); Bilirubin Direct 0.1 mg/dL (0-0.2); Bilirubin Total 0.4 mg/dL (0.2-1.0); Glucose Level 88 mg/dL (74-106); Lipase 109 U/L (73-393); Potassium 3.8 mmol/L (3.5-5.1); Protein, Total 7.9 g/dL (6.4-8.2); Sodium Level 141 mmol/L (136-145)
[2020-05-06 00:45] LABS: Urine Blood NEGATIVE (NEG); Urine Glucose NEGATIVE (NEG); Urine Protein NEGATIVE (NEG); Urine Specific Gravity 1.025 (1.005-1.030)
--- NOTE | 2020-05-06 03:53 | ER ---
Nurse's Notes [facility] Name: Mitzi Betancourt Age: 30 yrs Sex: Female : 1990 Arrival Date: 05/05/2020 Time: 22:12 Bed 2 Private MD: Diagnosis: Gastritis, unspecified, without bleeding Presentation: 05/05 22:42 Chief complaint: Patient states: she started having sharp abdominal pains which are bb getting worse denies vomiting or diarrhea does have nausea, pt is post x 3 months and is currently breast feeding. Coronavirus screen: At this time, the client does not indicate any symptoms associated with coronavirus-19. Ebola Screen: No symptoms or risks identified at this time. Initial Sepsis Screen: Does the patient meet any 2 criteria? No. Patient's initial sepsis screen is negative. Does the patient have a suspected source of infection? No. Patient's initial sepsis screen is negative. Risk Assessment: Do you want to hurt yourself or someone else? Patient reports no desire to harm self or others. Onset of symptoms was May 05, 2020. 22:42 Method Of Arrival: Ambulatory bb 22:42 Acuity: LION 3 bb Triage Assessment: 05/06 04:16 General: Appears. 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 - Social history:: Smoking status: Patient denies any tobacco usage or history of. Screenin:40 Abuse screen: Denies threats or abuse. Nutritional screening: No deficits noted. ll2 Tuberculosis screening: No symptoms or risk factors identified. Fall Risk None identified. Assessment: 23:38 Reassessment: Patient and/or family updated on plan of care and expected duration. Pain ll2 level reassessed. Patient is alert, oriented x 3, equal unlabored respirations, skin warm/dry/pink. see triage assessment. Pain: Complains of pain in lt flank pain. Neuro: Level of Consciousness is awake, alert, obeys commands, Oriented to person, place, time, situation. Cardiovascular: Capillary refill < 3 seconds Patient's skin is warm and dry. Respiratory: Airway is patent Respiratory effort is even, unlabored, Respiratory pattern is regular, symmetrical. GI: No signs and/or symptoms were reported involving the gastrointestinal system. : No signs and/or symptoms were reported regarding the genitourinary system. EENT: No signs and/or symptoms were reported regarding the EENT system. Derm: Skin is intact, is healthy with good turgor, Skin is dry, Skin is pink, warm \T\ dry. Skin temperature is warm. Musculoskeletal: Circulation, motion, and sensation intact. Range of motion: intact in all extremities. 05/06 02:00 Neuro: Level of Consciousness is awake, alert, obeys commands, Oriented to person, rv place, time, situation. 02:00 Cardiovascular: Patient's skin is warm and dry. Respiratory: Airway is patent rv Respiratory effort is even, unlabored, Respiratory pattern is regular, symmetrical, Breath sounds are clear bilaterally. 04:16 General: Appears comfortable, Behavior is calm, cooperative. Neuro: Level of rv Consciousness is awake, alert, obeys commands, Oriented to person, place, time, situation. Cardiovascular: Patient's skin is warm and dry. Respiratory: Airway is patent Respiratory effort is even, unlabored. Vital Signs: 05/05 22:42 BP 141 / 82; Pulse 97; Resp 18 S; Temp 98.5(O); Pulse Ox 100% on R/A; Weight 106.59 kg bb (R); Height 5 ft. 4 in. (162.56 cm) (R); Pain 7/10; 23:00 BP 120 / 49; Pulse 60; Resp 16; Pulse Ox 100% on R/A; ll2 05/06 00:00 BP 114 / 70; Pulse 70; Resp 17; Pulse Ox 97% on R/A; rv 01:00 BP 119 / 63; Pulse 71; Resp 16; Pulse Ox 97% on R/A; rv 02:00 BP 121 / 70; Pulse 70; Resp 16; Pulse Ox 98% on R/A; rv 03:00 BP 124 / 66; Pulse 68; Resp 16; Pulse Ox 97% on R/A; rv 05/05 22:42 Body Mass Index 40.34 (106.59 kg, 162.56 cm) ED Course: 05/05 22:12 Patient arrived in ED. am2 22:31 Sincere Chen MD is Attending Physician. tw4 22:48 Triage completed. bb 22:49 Arm band placed on Patient placed in an exam room, on a stretcher, on pulse oximetry. bb 23:19 Jaden Woodson, RN is Primary Nurse. rv 23:20 Missed attempt(s): 20 gauge in right forearm. tt3 23:36 Initial lab(s) drawn, by me, sent to lab. Inserted saline lock: 22 gauge in right tt3 antecubital area, using aseptic technique. Blood collected. 05/06 00:00 Patient has correct armband on for positive identification. rv 00:00 Pulse ox on. NIBP on. rv 02:18 CT Abd/Pelvis - IV Contrast Only In Process Unspecified. EDMS 04:17 No provider procedures requiring assistance completed. IV discontinued, intact, rv bleeding controlled, No redness/swelling at site. Pressure dressing applied. Administered Medications: 05/05 23:37 Drug: GI Cocktail without - (Maalox Suspension 30 ml, Lidocaine Liquid 2 % 15 bb ml) Route: PO; 05/06 00:49 Follow up: Response: No adverse reaction ll2 05/05 23:37 Drug: ProTONIX 40 mg Route: IVP; Site: right antecubital; bb 05/06 00:49 Follow up: Response: No adverse reaction ll2 Outcome: 03:53 Discharge ordered by . tw4 04:17 Discharged to home ambulatory. rv 04:17 Condition: good 04:17 Discharge instructions given to patient, Instructed on discharge instructions, follow up and referral plans. medication usage, Demonstrated understanding of instructions, follow-up care, medications, Prescriptions given X 2. 04:18 Patient left the ED. rv Signatures: Dispatcher [employer] EDMS Reina Silverman RN RN bb Dannielle Ruth am2 Sincere Chen MD MD tw4 Jaden Woodson, JAIME RN rv Yovana Kay RN RN ll2 Young Lee tt3 Corrections: (The following items were deleted from the chart) 05/05 23:40 23:40 Missed attempt(s): 20 gauge in right forearm. tt3 tt3
--- NOTE | 2020-05-06 03:53 | EDPHYS ---
Physician Documentation [facility] Name: Mitzi Betancourt Age: 30 yrs Sex: Female : 1990 Arrival Date: 05/05/2020 Time: 22:12 Bed 2 Private MD: ED Physician Sincere Chen HPI: 05/05 23:09 This 30 yrs old Female presents to ER via Ambulatory with complaints of Flank tw4 Pain. 23:09 The patient presents with abdominal pain. Onset: The symptoms/episode began/occurred tw4 today. 23:10 The symptoms radiate to Associated signs and symptoms: Pertinent positives: nausea, tw4 vomiting, and diarrhea, Pertinent negatives: blood in stools, chest pain, constipation, dysuria, headache. The symptoms are described as sharp. Modifying factors: The symptoms are alleviated by nothing, the symptoms are aggravated by nothing. Severity of pain: At its worst the pain was moderate in the emergency department the pain is unchanged. The patient has not experienced similar symptoms in the past. 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 - Social history:: Smoking status: Patient denies any tobacco usage or history of. ROS: 23:10 Constitutional: Negative for fever, chills, and weight loss, Eyes: Negative for injury, tw4 pain, redness, and discharge, Cardiovascular: Negative for chest pain, palpitations, and edema, Respiratory: Negative for shortness of breath, cough, wheezing, and pleuritic chest pain, Back: Negative for injury and pain, MS/Extremity: Negative for injury and deformity, Skin: Negative for injury, rash, and discoloration, Neuro: Negative for headache, weakness, numbness, tingling, and seizure. 23:10 Abdomen/GI: Positive for abdominal pain, Negative for nausea and vomiting, nausea, vomiting, and diarrhea, nausea, constipation, abdominal cramps, abdominal distension, anorexia, dysphagia, hematemesis, black/tarry stool, rectal pain. Exam: 23:11 Constitutional: This is a well developed, well nourished patient who is awake, alert, tw4 and in no acute distress. Head/Face: Normocephalic, atraumatic. Chest/axilla: Normal chest wall appearance and motion. Nontender with no deformity. No lesions are appreciated. Cardiovascular: Regular rate and rhythm with a normal S1 and S2. No gallops, murmurs, or rubs. Normal PMI, no JVD. No pulse deficits. Respiratory: Lungs have equal breath sounds bilaterally, clear to auscultation and percussion. No rales, rhonchi or wheezes noted. No increased work of breathing, no retractions or nasal flaring. Back: No spinal tenderness. No costovertebral tenderness. Full range of motion. Skin: Warm, dry with normal turgor. Normal color with no rashes, no lesions, and no evidence of cellulitis. MS/ Extremity: Pulses equal, no cyanosis. Neurovascular intact. Full, normal range of motion. Neuro: Awake and alert, GCS 15, oriented to person, place, time, and situation. Cranial nerves II-XII grossly intact. Motor strength 5/5 in all extremities. Sensory grossly intact. Cerebellar exam normal. Normal gait. Vital Signs: 22:42 BP 141 / 82; Pulse 97; Resp 18 S; Temp 98.5(O); Pulse Ox 100% on R/A; Weight 106.59 kg bb (R); Height 5 ft. 4 in. (162.56 cm) (R); Pain /10; 23:00 BP 120 / 49; Pulse 60; Resp 16; Pulse Ox 100% on R/A; ll2 05/06 00:00 BP 114 / 70; Pulse 70; Resp 17; Pulse Ox 97% on R/A; rv 01:00 BP 119 / 63; Pulse 71; Resp 16; Pulse Ox 97% on R/A; rv 02:00 BP 121 / 70; Pulse 70; Resp 16; Pulse Ox 98% on R/A; rv 03:00 BP 124 / 66; Pulse 68; Resp 16; Pulse Ox 97% on R/A; rv 05/05 22:42 Body Mass Index 40.34 (106.59 kg, 162.56 cm) bb MDM: 05/05 22:36 Patient medically screened. tw4 23:11 Data reviewed: vital signs, nurses notes. Data interpreted: Pulse oximetry: tw4 Interpretation: normal. 05/05 22:41 Order name: Basic Metabolic Panel; Complete Time: 00:46 tw4 05/06 00:47 Interpretation: Normal except: BUN 21. tw4 05/05 22:41 Order name: CBC with Diff; Complete Time: 00:21 tw4 05/06 00:21 Interpretation: Normal except: HCT 35.3. tw4 05/05 22:41 Order name: Hepatic Function; Complete Time: 00:46 tw4 05/06 00:46 Interpretation: Normal except: A/G 0.9; GLOB 4.2. tw4 05/05 22:41 Order name: Lipase; Complete Time: 00:46 tw4 05/06 00:48 Interpretation: Within normal limits: LIP 109. tw 05/05 23:56 Order name: Urine Dipstick--Ancillary (enter results); Complete Time: 00:46 me5 05/06 00:48 Interpretation: Within normal limits. tw4 05/05 23:56 Order name: Urine --Ancillary (enter results); Complete Time: 00:46 me5 05/06 00:48 Interpretation: Within normal limits: URINE PREG NEG. tw4 05/05 22:41 Order name: IV Saline Lock; Complete Time: 23:37 tw4 05/05 22:41 Order name: Labs collected and sent; Complete Time: 23:37 [facility] 05/05 22:41 Order name: Urine Dipstick-Ancillary (obtain specimen); Complete Time: 23:18 [facility] 05/05 22:41 Order name: Urine Test (obtain specimen); Complete Time: 23:18 tw 05/06 00:50 Order name: CT Abd/Pelvis - IV Contrast Only tw4 Administered Medications: 23:37 Drug: GI Cocktail without - (Maalox Suspension 30 ml, Lidocaine Liquid 2 % 15 bb ml) Route: PO; 05/06 00:49 Follow up: Response: No adverse reaction ll2 05/05 23:37 Drug: ProTONIX 40 mg Route: IVP; Site: right antecubital; 05/06 00:49 Follow up: Response: No adverse reaction 2 Disposition: 05/06/20 03:53 Discharged to Home. Impression: Gastritis, unspecified, without bleeding. - Condition is Stable. - Discharge Instructions: Gastritis, Adult. - Prescriptions for Bentyl 20 mg Oral Tablet - take 1 tablet by ORAL route every 6 hours As needed; 20 tablet. Protonix 40 mg Oral Tablet - take 1 tablet by ORAL route once daily; 30 tablet. - Medication Reconciliation Form, Thank You Letter, Antibiotic Education, Prescription Opioid Use form. - Follow up: Private Physician; When: Upon discharge from the Emergency Department; Reason: Recheck today's complaints, Continuance of care, Re-evaluation by your physician. - Problem is new. - Symptoms have improved. Signatures: Dispatcher [employer] EDReina Ellsworth RN RN bb Sincere Chen MD MD tw4 Jaden Woodson RN RN rv Yovana Kay RN ll2 Corrections: (The following items were deleted from the chart) 04:18 03:53 05/06/2020 03:53 Discharged to Home. Impression: Gastritis, unspecified, without rv bleeding. Condition is Stable. Forms are Medication Reconciliation Form, Thank You Letter, Antibiotic Education, Prescription Opioid Use. Follow up: Private Physician; When: Upon discharge from the Emergency Department; Reason: Recheck today's complaints, Continuance of care, Re-evaluation by your physician. Problem is new. Symptoms have improved. tw4
[2020-05-06 04:40] VITALS: TEMP 98.5
[2020-05-06 04:55] VITALS: BP 124/66; O2SAT 97
--- NOTE | 2020-05-06 15:43 | RAD REPORT ---
EXAM DESCRIPTION: CT ABDOMEN PELVIS WITH IV CONTRAST CLINICAL HISTORY: ABD PAIN TECHNIQUE: Contiguous axial images obtained through the abdomen and pelvis following the uneventful administration of IV contrast. Coronal and sagittal reformatted images were provided. This exam was performed according to our departmental dose-optimization program, which includes autom ated exposure control, adjustment of the mA and/or kV according to patient size and/or use of iterati ve reconstruction technique. COMPARISON: None available for comparison. FINDINGS: Lung bases: Clear Liver: The liver is enlarged and mildly diffusely low in density compatible with steatosis. Gallbladder and biliary system: Prior cholecystectomy. Pancreas: Unremarkable Spleen: Unremarkable Adrenals: Unremarkable Kidneys: Normal renal cortical enhancement. Punctate bilateral calculi. No hydronephrosis. Bowel: Colonic diverticula without adjacent inflammatory change. Moderate stool within the rectal vau lt. No obstruction. No appreciable mucosal thickening. Appendix: Normal caliber appendix. No findings to suggest acute appendicitis. Urinary bladder: Unremarkable Reproductive: Unremarkable as visualized Lymph nodes: No pathologically enlarged lymph nodes. Peritoneum: No focal fluid collection. No free air. Vessels: No abdominal aortic aneurysm. Abdominal wall: Tiny fat-containing umbilical hernia. Transverse lower ventral abdominal wall incisio nal scar. Bones: Unremarkable IMPRESSION: 1. No acute abnormality identified within the abdomen and pelvis. 2. Other findings as above. Electronically signed by: Bruce Cline MD 05/06/2020 2:41 AM CDT Due to temporary technical issues with the PACS/Fluency reporting system, reports are being signed by the in house radiologist without review as a courtesy to ensure prompt reporting. The interpreting r adiologist is fully responsible for the content of the report.
== END 2020-05-06 04:18 | disposition home or self-care (01) ==
LOC: ER 22:06
DX: K29.70 Gastritis, unspecified, without bleeding (principal); Z88.0 Allergy status to penicillin; Z91.018 Allergy to other foods
CPT/HCPCS: 85025; 80048; 36415; 81025; 80076; 81003; 83690; 74177; 96374; 99284; Q9967; C9113

== ENCOUNTER 2021-11-24 13:35 | Emergency (ER) | payer BC, OTHER ==
--- OUTSIDE RECORDS SUMMARY | 2021-11-24 13:38 | XMS REPORT | Continuity of Care Document ---
:1990 Author Organization [facility] t Address [address] [place] [address] Care Team Providers Name Role Phone Pati Attending Clinician Unavailable Russel Coy Attending Clinician Unavailable Russel Coy Admitting Clinician Unavailable Payers Payer Name Policy Type Policy Number Effective Date Expiration Date S ource Problems This patient has no known problems. Allergies, Adverse Reactions, Alerts Allergy Allergy Status Severity Reaction(s) Onset Inactive Treating Comm ents Source Name Type Date Date Clinician Penicill DA Active U 2019-0 [facility] 01-30 [facility] [place] Penic[place] DA Active U RASH 0 [facility] ins 01-30 [facility] [place] Penicill DA Active U 2014-0 [facility] ins 01-03 [facility] [place] Penic[place] DA Active U RASH 2014-0 [facility] 01-03 [facility] [place] Medications This patient has no known medications. Procedures Procedure Date / Time Performed Performing Clinician Deisi coffey [id number] 2020-01-31 00:00:00 SHIREEN [facility] Encounters Start End Encounter Admission Attending Care Care Encounter Source Date/Time Date/Time Type Type Clinicians Facility Department ID 2021-08-09 Outpatient EDUARDO Krueger [facility] [id number] Common 11:04:54 Justin [address] [facility] 2020-01-31 Inpatient Nusrat Coy [facility] JOHN [id number] [facility] 00:21:00 [id number] [facility] 2021-10-11 2021-10-11 Outpatient Nusrat Coy LAB DO6 [id number] [facility] 09:29:00 09:29:00 [id number] [facility] [place] 2021-10-11 2021-10-11 Outpatient ZbigniewNusrat pelaezLONG [facility] F00 [id number] [facility] 09:29:00 09:29:00 08 [facility] [place] 2020-01-05 2020-01-05 Outpatient Nusrat Coy RADI DO6 [id number] [facility] 15:00:00 15:00:00 [id number] [facility] [place] 2019-11-20 2019-11-20 Outpatient Nusrat Coy RADI DO6 [id number] [facility] 11:00:00 11:00:00 [id number] [facility] [place] 2019-11-12 2019-11-12 Outpatient ZbigniewNusrat pelaez RADI DO6 [id number] [facility] 09:00:00 09:00:00 [id number] [facility] [place] 2019-09-28 2019-09-28 Outpatient ZbigniewNusrat pelaez RADI DO6 [id number] [facility] 10:00:00 10:00:00 [id number] [facility] [place] Results Test Description Test Time Test Comments Results Result Comments Source SURGICAL 2021-10-12 14:20:00 Test Item Value Reference Range Interpretation Comme nts SURGICAL RUN DATE: (test 10/12/21 [facility] PAGE 1 RUN TIME: 1420 code = Specimen Inquiry RUN USER: INTERFACE SR) PATIENT: TRINIDAD RUTLEDGE [facility] #: [id number] AGE/SX: 31/F ROOM: RE10/11/21REG DR: Nusrat Coy III, MD : 88 BED: DIS: STATUS: REG REF TLOC: SPEC #: [id number] RECD: -1016 [facility] #: [id number] LADONNA: 10/10/21-[address] [facility] [address]: Nusrat Coy III, MD ENTERED: 10/11/21-101 SP TYPE: SURGICAL OT DR: ORDERED: ANATOMIC SPEC, SPEC TRACK, [id number] PROCEDURES: [id number] (10/12/21-1420) TISSUES: A. ENDOMETRIUM, NOS - ABDOMINAL WALL ENDOMET RIOSIS FINAL DIAGNOSIS SOFT TISSUE, ABDOMINAL WALL, EXCISION: - Endometriosis. GROSS DESCRIPTION Specimen A is received informal labeled "abdominal wall endometriosis" and consists of aportion of fatty tissue measuring 3.5 x 3 x 2 cm. Specimen is serially sectioned to reveala fibrous cavity filled with bloody material measuring 2.5 x 2 x 1.5 cm. Specimen isentirely submitted into 6 cassettes labeled A1 through A6. Technical component performed at [facility] [employer],[place] [address], [place] [address] Unless gross only, the diagnosis is based upon microscopic examination.Immunohistochemi stry: This test was developed and its performance characteristicsdetermined by this laboratory. It has not been approved nor does it need approval by [place] FDA. Appropriate positive and negative controls are review ed and judged to beacceptable. This laboratory is certified under the Clinical Laboratory ImprovementAmendm ents (CLIA-88) as qualified to perform high complexity clinical laboratory testing. CLINICAL INFO RMATION TIME OUT OF BODY 1221, TIME IN FORMALIN 1230, ABDOMINAL WALL ENDOMETRIOSIS. Signed Antonia Romero cki 10/12/21 1420 END OF REPORT PLACENTA THIRD [id number] 12:31:00 RUN DATE: 02/03/20 [facility] PAGE 1 RUN TIME: 1816 Specimen Inquiry RUN USER: INTERFACE PATIENT: TRINIDAD RUTLEDGE LOC: JENNIFER U #: [id number] AGE/SX: 29/F ROOM: [facility] RE01/31/20REG DR: Nusrat Coy III, MD : 88 BED: A DIS: 02/03/20 STATUS: DIS IN TLOC: SPEC #: [id number] RECD: 01/31/20-917 STATUS: DIOGO REQ #: [id number] LADONNA: 01/31/20- SUBM DR: Nusrat Coy III, MD ENTERED: 02/01/20 SP TYPE: PLACIII OTHR DR: ORDERED: LEVEL V SURGICA/3 CODES: [id number] - FALLOPIAN TUBE PH3387 - PLACENTA, NOS PROCEDURES: LEVEL V SURGICA (Incomplete) TISSUES: PLACENTA, NOS - PLACENTA FALLOPIAN TUBE, NOS - BILATERAL FALLOPIAN TUBES CLINICAL HISTORY 29 year old, 35.6 weeks, [id number], repeat section, prematurity <37 weeks, BTL (wpd) FINAL DIAGNOSIS Specimen #1 right fallopian tube, segmental resection: - histologic - complete lumen demonstrated Speci men #2 left fallopian tube, segmental resection: - histologic - complete lumen demonstrated Specimen #3 placenta, godoy gestation (35.6 weeks): - third trimester villous architecture - intervillous fibrin thrombus - umbilical cord: insertion 12 cm from nayley in, 3-vessel, 25 cm length - placental weight: actual 385 gms/expected 411 gms CPT Code: 91349 x2, 58975 cds/wpd GROSS DESCRIPTION ANATOMIC SOURCE OF TISSUE (per Requisition): 1. Tube segments (received in 2 containers) 2. Placenta Each specimen is labeled with the patient's name and medical record number. CONTINUED ONNEXT PAGE RUN DATE: 02/03/20 [facility] PAGE 2 RUN TIME: 1816 Specimen Inquiry RUN USER: INTERFACE SPEC #: [id number] PATIENT: TRINIDAD RUTLEDGE #[id number] (Continued) GROSS DESCRIPTION (Continued) Specimen #1 is designated "right tube" and consists of a 3.0 x 0.7 cm decker-rios tubular tissue with fimbriae. Sectioning reveals a pinpoint lumen. Intelligence Support Officer sections are submitted and labeled A1. Specimen #2 is abdiaziz ignated "left tube" and consists of a 3.0 x 0.8 cm decker-rios tubular tissue with fimbriae. Sectioning reveals a pinpoint lumen. Intelligence Support Officer sections are submitted and labeled B1. Specimen [...] allan 02/01/20 Signed Edward Borrego 02/03/20 1231 END OF REPORT HGB [id number] 06:50:00 Test Item Value Reference Range Interpretation Comments HEMOGLOBIN (test code = HGB) 9.7 g/dL 10.7-13.9 L HEMATOCRIT (test code = HCT) 30.6 % 32.1-42.1 L CAPILLARY BLOOD [id number] 04:38:00 Test Item Value Reference Range Interpretation [...] 21.0 % code = FIO2C) CAPILLARY BLOOD [id number] 04:38:00 Test Item Value Reference Range Interpretation [...] % code = FIO2C) AG HEPATITIS B [id number] 03:05:00 Test Item Value Reference Range Interpretation Comments AG HEPATITIS B SURFACE (test code NONREACTIVE NONREACTIVE = HBSAG) IS CONSENT FORM SIGNED FOR HIV TESTING? NAB HEPATITIS C [id number] 03:05:00 Test Item Value Reference Range Interpretation Comments AB HEPATITIS C (test code = NONREACTIVE NONREACTIVE HCVAB) SIGNAL TO CUTOFF (test code = 0.03 <0.80 N CUTOFF) IS CONSENT FORM SIGNED FOR HIV TESTING? NAB [id number] 03:05:00 Test Item Value Reference Range Interpretation Comments AB TREPONEMA (test code = TREPAB) NONREACTIVE NONREACTIVE IS CONSENT FORM SIGNED FOR HIV TESTING? NAB HIV 1 03:05:00 Test Item Value Reference Range Interpretation Comments AB HIV 1 2 (test NONREACTIVE NONREACTIVE Done by [facility] code = GDI81XO) 4th Gen HIV Ag/Ab Combo Screen IS CONSENT FORM SIGNED FOR HIV TESTING? NAG HEPATITIS B [id number] 03:03:00 Test Item Value Reference Range Interpretation Comments AG HEPATITIS B SURFACE (test code NONREACTIVE NONREACTIVE = HBSAG) IS CONSENT FORM SIGNED FOR HIV TESTING? NAB HEPATITIS C [id number] 03:03:00 Test Item Value Reference Range Interpretation Comments AB HEPATITIS C (test code = NONREACTIVE NONREACTIVE HCVAB) SIGNAL TO CUTOFF (test code = 0.03 <0.80 N CUTOFF) IS CONSENT FORM SIGNED FOR HIV TESTING? NAB [id number] 03:03:00 Test Item Value Reference Range Interpretation Comments AB TREPONEMA (test code = TREPAB) NONREACTIVE NONREACTIVE IS CONSENT FORM SIGNED FOR HIV TESTING? NAB HIV 1 03:03:00 Test Item Value Reference Range Interpretation Comments AB HIV 1 2 (test code = NXT16AV) NONREACTIVE IS CONSENT FORM SIGNED FOR HIV TESTING? NAG HEPATITIS B [id number] 02:49:00 Test Item Value Reference Range Interpretation Comments AG HEPATITIS B SURFACE (test code NONREACTIVE NONREACTIVE = HBSAG) IS CONSENT FORM SIGNED FOR HIV TESTING? NAB HEPATITIS C [id number] 02:49:00 Test Item Value Reference Range Interpretation Comments AB HEPATITIS C (test code = HCVAB) NONREACTIVE SIGNAL TO CUTOFF (test code = CUTOFF) <0.80 IS CONSENT FORM SIGNED FOR HIV TESTING? NAB [id number] 02:49:00 Test Item Value Reference Range Interpretation Comments AB TREPONEMA (test code = TREPAB) NONREACTIVE NONREACTIVE IS CONSENT FORM SIGNED FOR HIV TESTING? NAB HIV 1 02:49:00 Test Item Value Reference Range Interpretation Comments AB HIV 1 2 (test code = IOX69PP) NONREACTIVE IS CONSENT FORM SIGNED FOR HIV TESTING? NCOVID 19 Asymptomatic IH [id number] 02:15:00 Test Item Value Reference Range Interpretation [...] cleared or approved; th e test hasbeen authori zed by FDA under an Emerge ncy Use Authorization(E UA) for use by lawrenceato bernard certified under the CLIA thatmeet the re quirements to perform mode rate, high or waivedcomple xity tests. This jaycee t is authorized for use at thePoint of Car e (POC), i.e., in patien t care settingsoperati ng under a CLIA Certificat e of Waiver, Certifi yosi ofCompliance, o r Certificate of Accreditation. This test is only authori zebrooke for the duration of thedeclaration that circumstances e xist justifying theauthorizatio n of emergency use o f in vitro diagnostic test sfor detection and/o r diagnosis of CO VID-19 under Ibhplla05 4(b)(1) of the Act, 21 U.S .C. 360bbb-3(b)(1), unless theauthorizatio n is terminated or r evoked sooner. COMPREHENSIVE METABOLIC [id number] 02:11:00 Test Item Value Reference Range Interpretation [...] 46-116 N code = ALKP) CBC W/AUTO [id number] 01:46:00 Test Item Value Reference Range Interpretation [...] NORMAL code = PLTMR) - US FLW [id number] 16:22:00 Patient Name: MATYTRINIDADUlises DOMINGUEZ Unit No: [id number] EXAMS: CPT [place]: [id number] [place] [address] [facility] [address] [place], [place] [address] OBSTETRICAL ULTRASOUND REPORT Pat. Name: TRINIDAD RUTLEDGE Pat. No: [id number] Date: 01/05/2020 2:49pm , Age: 08 1990, 29 Pregnancies: 4, Para 3 LMP: 05/31/2019 GA by LMP: 31w2d GA by 1st: 29w6d GA by US: 29w1d GA Selected: 29w6d (From First S) AMERICO: 03/16/2020 Referring MD: Nusrat Coy Out Patient Therapist: Angel Barreto RDMS CPT4: USPREGFU Admitting MD: Nusrat Coy Hist/Ind: Heart Anatomy Weight OB F/U Scan #3 MEASUREMENTS AGE GROWTH EVALUATION Measurement GA Range Srce %for GA Ratios ----- ---- ------- BPD 7.1 cm 28w5d (22j3w-29j8r) Hadl BPD 16% FL/BPD 0.78 (0.71 - 0.87) HC 27.8cm 30w1d (15i5j-22l5v) Hadl HC 54% FL/AC 0.22 (0.20 - 0.24) APD 8.2 cm APD HC/AC 1.10 (0.98 - 1.17) TAD 7.9 cm TAD CI 0.73 (0.70 - 0.86) AC 25.3 cm 29w3d (05k4f-59r5b) Hadl AC 42% FL 5.6 cm 29w0d (47v5e-21x7p) Hadl FL 31% HL 4.9 cm 29w0d (83w2r-36o0p) Chas HL 35% GA for sonogram 29w1d (80h4n-31q0y) Weight Estimate: based on (BPD,HC,AC,FL) Hadlock Weight: 1394 gm (2313-5576) Hadlo : 3lbs, 1oz Normal: 1439 gm (7168-4878) Brenn Wt% 46% for 29.9 wks Cervical [...] Left ventricular outflow tract (LVOT) seen [facility] NAME: TRINIDAD RUTLEDGE Radiology Department PHYS: Nusrat Delong III, MD [address] : 1990 AGE: 29 SEX: [place] [address] LOC: SammiRAD PHONE #: [phone] EXAM DATE: 01/05/2020 STATUS: REG CLI FAX #: [phone] RAD NO: Page 1 Signed Report (CONTINUED) Patient Name: TRINIDAD RUTLEDGE Unit No: [id number] EXAMS: CPT CODE: [id number] [place] [address] <Continued> Right ventricular outflow tract (RVOT) seen [...] Technologist: Angel Barreto RDMS Probe: Trnscrbd D/ (1621) t.SDR.NMG Orig Print D/T: S: 01/05/2020 (1621) [facility] NAME: TRINIDAD RUTLEDGE Radiology Department PHYS: Nusrat Valdes III, MD [address] : 1990 AGE: 29 SEX: F [place] [address] LOC: SammiRAD PHONE #: [phone] EXAM DATE: 01/05/2020 STATUS: REG CLI FAX #: [phone] RAD NO: Page 2 Signed Report Patient Name: TRINIDAD RUTLEDGE Unit No: [id number] EXAMS:CPT CODE: [id number] [place] UP [address] <Continued> [facility] NAME: TRINIDAD RUTLEDGE Radiology Department PHYS: Nusrat Delong III, MD [address] : 1990 AGE: 29 SEX: F [place] [address] LOC: SammiRAD PHONE #: [phone] EXAM DATE: 01/05/2020 STATUS: REG CLI FAX #: [phone] RAD NO: Page 3 Signed Report- US PREG AFTER 2019-11-12 13:10:00 Patient Name: TRINIDAD RUTLEDGE Unit No: [id number] EXAMS: CPT CODE: [id number] US PREG AFTER TRI [address] [facility] [address] [place] [place], [place] [address] OBSTETRICAL ULTRASOUND REPORT Pat. Name: TRINIDAD RUTLEDGE Pat. No: [id number] Date: 11/12/2019 11:42am , Age: 08 1990, 29 Pregnancies: 4, Para 3 LMP: 05/31/2019 GA by LMP: 23w4d GA by 1st: 22w1d GA by US: 21w6d GA Selected: 22w1d (From Known E) AMERICO: 03/16/2020 Referring MD: Nusrat Coy Out Patient Therapist: Racheal Cisneros RDMS CPT4: TMZUHEE1X Admitting MD: Nusrat Coy Hist/Ind: 2ND SCAN ANATOMY MEASUREMENTS AGE GROWTH EVALUATION Measurement GA Range Srce %for GA Ratios ----- ---- ------- BPD 5.3 cm 22w1d (24t9z-16j1z)Hadl BPD 51% FL/BPD 0.72 HC 19.8 cm 21w6d (21f1y-85k9r) Hadl HC 41% FL/AC 0.22 (0.20 - 0.24) APD 5.6 cm APD HC/AC 1.12 (1.04 - 1.23) TAD 5.6 cm TAD CI 0.79 (0.70 - 0.86) AC 17.6 cm 22w2d (19i0w-51s8x) Hadl AC 53% FL 3.8 cm 21w5d (82q1t-47c1c) Hadl FL 42% HL 3.6 cm 22w3d (19w5d- 25w1d) Chas HL 55% GA for sonogram 21w6d (01b7y-46w5u) Weight Estimate: based on (BPD,HC,AC,FL) Hadlock Weight: 492 gm (420-564) Hadlock : 1lbs, 1oz Normal: 490 gm (327-930) [facility] Wt% 50% for 22.1 wks Cervical Length: 4.0 cm Heart Rate: 148 bpm MATERNAL ANATOMY Ovaries LxHxW (cm) Right 2.7 x 1.1 x 3.0 Vol: 4.7cc Left 2.3 x 1.6 x 1.9 Vol: 3.7cc CLINICAL SUMMARY Type of Gestation: Godoy Intrauterine in transverse presentation. size is appropriate for gestational age. motion and organs seen: heart motion seen [facility]: TRINIDAD RUTLEDGE Radiology Department PHYS: Nusrat Delong III, MD [address] : 1990AGE: 29 SEX: Ile[place] [address] LOC: F.RAD BIGG NE #: [phone] EXAM DATE: 11/12/2019 STATUS: REG CLI FAX #: [phone] RAD NO: Page 1 Signed Report (CONTINUED) Patient Name: TRINIDAD RUTLEDGE Unit No: [id number] EXAMS: CPT CODE: [id number] US PREG AFTER 1ST TRI 13783 <Continued> body and limb movements seen Normal [...] CaroleAJ13 Orig Print D/T: S: 11/12/2019 (1310) [facility] NAME: BRE RUTLEDGEUlises DOMINGUEZ Radiology Department PHYS: Nusrat Delong III, MD [address] : 1990 AGE: 29 SEX: Ile[place] [address] LOC: SammiRAD PHONE #: [phone] EXAM DATE:11/12/2019 STATUS: REG CLI FAX #: [phone] RAD NO: Page 2 Signed Report Patient Name: TRINIDAD RUTLEDGEUnit No: [id number] EXAMS: CPT CODE: [id number] US PREG AFTER 1ST TRI [address]0111 <Continued> [facility] NAME: TRINIDAD RUTLEDGE Radiology Department PHYS: Nusrat Delong III, MD [address] : 1990 AGE: 29 SEX: [place] [address] LOC: SammiRAD PHONE #: [phone] EXAM DATE: 11/12/2019 STATUS: REG CLI FAX #: [phone] RAD NO: Page 3 Signed Report- US PREG UT [id number] 11:24:00 Patient Name: TRINIDAD RUTLEDGE Unit No: [id number] EXAMS: CPT CODE: [id number] US PREG UT TRANSVAGINAL [address] [facility] [address] [place] [place], [place] [address] LIMITED OBSTETRICAL ULTRASOUND REPORT Pat. Name: TRINIDAD RUTLEDGE Pat. No: [id number] Study Date: 09/28/2019 10:45am , Age: 08 1990, 29 Pregnancies: 4, Para 3 LMP: 05/31/2019 GA by LMP: 17w1d GA Selected: 15w5d (From Known E) AMERICO: 03/16/2020 Referring MD: Nusrat Coy Out Patient Therapist: Racheal Cisneros RDMS CPT4: USPRUTTRVG Hist/Ind: 1ST SCAN TACHYCARDIA Cervical [...] Lashay Valerio M.D. Electronic Signature 09/28/2019 11:24am [facility] NAME: TRINIDAD RUTLEDGE Radiology Department PHYS: Nusrat Delong III, MD [address] : 1990 AGE: 29 SEX: [place]le[place] [address] LOC: Ileana.RAD PHONE #: [phone] EXAM DATE: 09/28/2019 STATUS: DEP CLI FAX #: [phone] RAD NO: Page 1 Signed Report (CONTINUED) Patient Name: TRINIDAD RUTLEDGE Unit No: [id number] EXAMS: CPT CODE: [id number] US PREG UT TRANSVAGINAL [address] <Continued> at 1124 Reported and signed by: Stacey Valerio MD CC: Nusrat Coy III, MD Technologist: Racheal Cisneros [facility] Probe: [id number] Trnscrbd D/ (1124) t.CER Orig Print D/T: S: 09/30/2019 (0933) [facility] NAME: TRINIDAD RUTLEDGE Radiology Department PHYS: Nusrat Delong III, MD [address] : 1990 AGE: 29 SEX: [place]le[place] [address] LOC: Ileana.RAD PHONE #: [phone] EXAM DATE: 09/28/2019 STATUS: DEP CLI FAX #: [phone] RAD NO: Page 2 Signed Report Patient Name: TRINIDAD RUTLEDGE Unit No: [id number] EXAMS: CPT CODE: [id number] US PREG UT TRANSVAGINAL [address] <Continued> [facility] NAME: TRINIDAD RUTLEDGE Radiology Department PHYS: Nusrat Delong III, MD [address] : 1990 AGE: 29 SEX: Ileana [place], [place] [address] LOC: SammiRAD PHONE #: [phone] EXAM DATE: 09/28/2019 STATUS: DEP CLI FAX #: [phone] RAD NO: Page 3 Signed Report- US [id number] 11:24:00 Patient Name: TRINIDAD RUTLEDGE Unit No: [id number] EXAMS: CPT CODE: [id number] [place] LTD [address] [facility] [address] [place], [place] [address] LIMITED OBSTETRICAL ULTRASOUND REPORT Pat. Name: TRINIDAD RUTLEDGE Pat. No: [id number] Study Date: 09/28/2019 10:45am , Age: 08 1990, 29 Pregnancies: 4, Para 3 LMP: 05/31/2019 GA by LMP: 17w1d GA Selected: 15w5d (From Known E) AMERICO: 03/16/2020 Referring MD: NUSRAT COY Out Patient Therapist: Racheal Cisneros RDMS CPT4: USPREGLTD Admitting MD: [...] Lashay Valerio M.D. Electronic Signature 09/28/2019 11:24am [facility] NAME: TRINIDAD RUTLEDGE Radiology Department PHYS: Nusrat Delong III, MD [address] : 1990 AGE: 29 SEX: [place] [address] LOC: Ileana.RAD PHONE #: [phone] EXAM DATE: 09/28/2019 STATUS: REG CLI FAX #: [phone] RAD NO: Page 1 Signed Report (CONTINUED) Patient Name: TRINIDAD RUTLEDGE Unit No: [id number] EXAMS: CPT CODE: [id number] US LTD [address] <Continued> ElectronicallySigned by Stacey Valerio MD on 09/28/2019 at 1124 Reported and signed by: Stacey Valerio MD CC: Nusrat Coy III, MD Technologist: Racheal Cisneros RDMS Probe: Trnscrbd D/ (1124) t.CER Orig Print D/T: S: 09/28/2019 (1125) [facility] NAME: BRE RUTLEDGEUlises DOMINGUEZ Radiology Department PHYS: Nusrat Delong III, MD [address] : 1990 AGE: 29 SEX: [place]le[place] [address] LOC: Ileana.RAD PHONE #: [phone] EXAM DATE: 09/28/2019 STATUS: REG CLI FAX #: [phone] RAD NO: Page 2 Signed Report Patient Name: TRINIDAD RUTLEDGE Unit No: [id number] EXAMS: CPT CODE: [id number] US LTD [address] <Continued> [facility] NAME: TRINIDAD RUTLEDGE ALBERTO Radiology Department PHYS: Nusrat Delong III, MD [address] : 1990 AGE: 29 SEX: F [place], [place] [address] LOC: F.RAD PHONE #: [phone] EXAM DATE: 09/28/2019 STATUS: REG CLI FAX #: [phone] RAD NO: Page 3 Signed Report
[2021-11-24 14:16] LABS: Absolute Lymphocytes (CBC) 2.2 K/uL (0.7-4.9); Hematocrit 35.3 % (36.0-45.0); MPV 7.8 fL (7.6-11.3); RBC Red Blood Cell Count 4.24 M/uL (3.86-4.86)
--- NOTE | 2021-11-24 14:45 | RAD REPORT ---
EXAM DESCRIPTION: CT - Head C Spine Cap Wo Con - 11/24/2021 2:34 pm CLINICAL HISTORY: Trauma, head and neck injury. Chest, abdomen and pelvis pain. fall COMPARISON: No comparisons TECHNIQUE: CT head without contrast. CT cervical spine without contrast with coronal and sagittal reformatted images. CT chest, abdomen and pelvis without contrast with coronal and sagittal reformatted images of the [facility] ne. All CT scans are performed using dose optimization technique as appropriate and may include automated exposure control or mA/KV adjustment according to patient size. FINDINGS: CT HEAD WITHOUT CONTRAST: No intracranial hemorrhage, hydrocephalus or extra-axial fluid collection. No areas of brain edema o r midline shift. The paranasal sinuses and mastoids are clear. The calvarium is intact. Small left frontal scalp hemat elfego. CT CERVICAL SPINE WITHOUT CONTRAST: No fracture or subluxation. The prevertebral soft tissues are normal in thickness. CT CHEST, ABDOMEN, PELVIS WITHOUT CONTRAST: NOTE: Lack of contrast is a significant limitation in the assessment of trauma related findings. Spec ifically, solid organ, vascular and bowel evaluation is significantly limited. The lungs are clear.No pneumothorax or pericardial/pleural fluid. No evidence of intra-abdominal visceral injury, free fluid or free air is seen within the above detai led limitations. Cholecystectomy clips. No concerning pelvic findings. No fractures. IMPRESSION: Negative for acute traumatic findings within the above detailed limitations.
[2021-11-24 14:48] LABS: Potassium 3.9 mmol/L (3.5-5.1)
[2021-11-24] MEDS ORDERED: ONDANSETRON 4 MG/2 ML VIAL ONE (15:12)
[2021-11-24] MEDS ORDERED: MORPHINE 4 MG/ML SYR ONE ×2 (15:12→17:20)
--- NOTE | 2021-11-24 15:35 | RAD REPORT ---
EXAM DESCRIPTION: RAD - Wrist Right 3 View - 11/24/2021 3:29 pm CLINICAL HISTORY: PAIN Pain COMPARISON: No comparisons FINDINGS: No fracture or dislocation seen. No foreign body or other soft tissue abnormality. IMPRESSION: Negative examination.
--- NOTE | 2021-11-24 15:36 | RAD REPORT ---
EXAM DESCRIPTION: RAD - Tib Fib Left - 11/24/2021 3:29 pm CLINICAL HISTORY: PAIN COMPARISON: No comparisons FINDINGS: No acute fracture or dislocation seen. Moderate plantar calcaneal spur.
[2021-11-24] MEDS ORDERED: DERMABOND SKIN ADHESIVE TOP ONE (16:43)
--- NOTE | 2021-11-24 17:13 | EDPHYS ---
Physician Documentation [facility] Name: Mitzi Betancourt Age: 31 yrs Sex: Female : 1990 Arrival Date: 11/24/2021 Time: 13:36 Bed 4 Private MD: ED Physician Jhonathan Bee HPI: 11/24 16:09 This 31 yrs old Female presents to ER via EMS with complaints of Head injury, kdr right wrist and left tibia pain. 16:09 Details of fall: The patient fell from a height, out of a tree. Onset: The kdr symptoms/episode began/occurred suddenly, just prior to arrival. Associated injuries: The patient sustained injury to the head, forehead and right arm, decreased range of motion, hematoma. 16:09 Severity of symptoms: At their worst the symptoms were mild, moderate, just prior to kdr arrival. The patient has not experienced similar symptoms in the past. 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 - Social history:: Smoking status: Patient denies any tobacco usage or history of. - Immunization history: Last tetanus immunization: unknown. ROS: 16:09 Constitutional: Negative for fever, chills, and weight loss, Eyes: Negative for injury, kdr pain, redness, and discharge, Neck: Negative for injury, pain, and swelling, Cardiovascular: Negative for chest pain, palpitations, and edema, Respiratory: Negative for shortness of breath, cough, wheezing, and pleuritic chest pain, Abdomen/GI: Negative for abdominal pain, nausea, vomiting, diarrhea, and constipation, Back: Negative for injury and pain, MS/Extremity: Negative for injury and deformity, Skin: Negative for injury, rash, and discoloration, Neuro: Negative for headache, weakness, numbness, tingling, and seizure activity. Psych: Negative for depression, anxiety, suicide ideation, homicidal ideation, and hallucinations, Allergy/Immunology: Negative for hives, rash, and allergies, Endocrine: Negative for neck swelling, polydipsia, polyuria, polyphagia, and marked weight changes, Hematologic/Lymphatic: Negative for swollen nodes, abnormal bleeding, and unusual bruising. 16:09 Neuro: Positive for headache, weakness. Exam: 16:09 Constitutional: This is a well developed, well nourished patient who is awake, alert, kdr and in no acute distress. Eyes: Pupils equal round and reactive to light, extra-ocular motions intact. Lids and lashes normal. Conjunctiva and sclera are non-icteric and not injected. Cornea within normal limits. Periorbital areas with no swelling, redness, or edema. ENT: Nares patent. No nasal discharge, no septal abnormalities noted. Tympanic membranes are normal and external auditory canals are clear. Oropharynx with no redness, swelling, or masses, exudates, or evidence of obstruction, uvula midline. Mucous membranes moist. Neck: Trachea midline, no thyromegaly or masses palpated, and no cervical lymphadenopathy. Supple, full range of motion without nuchal rigidity, or vertebral point tenderness. No Meningismus. Chest/axilla: Normal chest wall appearance and motion. Nontender with no deformity. No lesions are appreciated. Cardiovascular: Regular rate and rhythm with a normal S1 and S2. No gallops, murmurs, or rubs. Normal PMI, no JVD. No pulse deficits. Respiratory: Lungs have equal breath sounds bilaterally, clear to auscultation and percussion. No rales, rhonchi or wheezes noted. No increased work of breathing, no retractions or nasal flaring. Abdomen/GI: Soft, non-tender, with normal bowel sounds. No distension or tympany. No guarding or rebound. No evidence of tenderness throughout. Back: No spinal tenderness. No costovertebral tenderness. Full range of motion. Skin: Warm, dry with normal turgor. Normal color with no rashes, no lesions, and no evidence of cellulitis. MS/ Extremity: Pulses equal, no cyanosis. Neurovascular intact. Full, normal range of motion. Neuro: Awake and alert, GCS 15, oriented to person, place, time, and situation. Cranial nerves II-XII grossly intact. Motor strength 5/5 in all extremities. Sensory grossly intact. Cerebellar exam normal. Normal gait. Vital Signs: 14:00 BP 138 / 125; Pulse 87; Resp 16; Temp 97.9; Pulse Ox 96% on R/A; Weight 108.86 kg; ll1 Height 5 ft. 4 in. (162.56 cm); Pain 10/10; 14:11 BP 117 / 92; ll1 14:30 BP 128 / 78; Pulse 66; Resp 15; Pulse Ox 100% ; jl7 15:15 BP 118 / 61; Pulse 75; Resp 15; Pulse Ox 100% ; jl7 16:00 BP 139 / 78; Pulse 83; Resp 16; Pulse Ox 100% ; jl7 16:45 BP 122 / 62; Pulse 80; Resp 15; Pulse Ox 99% ; jl7 17:48 BP 122 / 59; Pulse 72; Resp 15; Temp 98; Pulse Ox 100% on R/A; jl7 14:00 Body Mass Index 41.20 (108.86 kg, 162.56 cm) ll1 [place] Coma Score: 14:00 Eye Response: spontaneous(4). Verbal Response: oriented(5). Motor Response: obeys jl7 commands(6). Total: 15. 14:30 Eye Response: spontaneous(4). Verbal Response: oriented(5). Motor Response: obeys jl7 commands(6). Total: 15. 15:15 Eye Response: spontaneous(4). Verbal Response: oriented(5). Motor Response: obeys jl7 commands(6). Total: 15. 16:00 Eye Response: spontaneous(4). Verbal Response: oriented(5). Motor Response: obeys jl7 commands(6). Total: 15. 16:45 Eye Response: spontaneous(4). Verbal Response: oriented(5). Motor Response: obeys jl7 commands(6). Total: 15. 17:48 Eye Response: spontaneous(4). Verbal Response: oriented(5). Motor Response: obeys jl7 commands(6). Total: 15. Trauma Score (Adult): 14:00 Eye Response: spontaneous(1); Verbal Response: oriented(1); Motor Response: obeys jl7 commands(2); Systolic BP: > 89 mm Hg(4); Respiratory Rate: 10 to 29 per min(4); Jus Score: 15; Trauma Score: 12 Laceration: 16:47 Wound Repair of 4cm ( 1.6in ) subcutaneous laceration to forehead. Irregularly shaped.. pm1 Distal neuro/vascular/tendon intact. Anesthesia: Local anesthetic administered with 4 mls of 1% lidocaine. Wound prep: Extensive cleansing with hibiclenz by me, Wound irrigation with saline by me, Wound explored extensively, Copious irrigation. Galea closed with 1 6-0 plain gut using simple sutures and sterile technique. Skin closed with 9 6-0 Prolene using simple sutures and sterile technique. Dressed with non-adherent dressing. Patient tolerated well. MDM: 17:12 Patient medically screened. kdr 17:55 Data reviewed: vital signs, nurses notes, lab test result(s), radiologic studies. kdr Counseling: I had a detailed discussion with the patient and/or guardian regarding: the historical points, exam findings, and any diagnostic results supporting the discharge/admit diagnosis, lab results, radiology results. 11/24 13:40 Order name: Basic Metabolic Panel; Complete Time: 14:54 [facility] 11/24 13:40 Order name: CBC with Diff; Complete Time: 14:49 [facility] 11/24 13:40 Order name: Type And Screen [facility] 11/24 13:40 Order name: CT Traumagram (Head C Spine CAP wo con); Complete Time: 14:49 [facility] 11/24 14:55 Order name: Tib Fib Left XRAY; Complete Time: 15:42 [facility] 11/24 15:30 Order name: Wrist Right 3 View; Complete Time: 15:42 EDMS 11/24 13:40 Order name: Labs collected and sent; Complete Time: 14:44 [facility] 11/24 15:58 Order name: Dressing - Wound; Complete Time: 16:06 pm1 11/24 15:58 Order name: Gloves, Sterile; Complete Time: 16:19 pm1 11/24 15:58 Order name: Prolene, Sutures; Complete Time: 16:19 pm1 11/24 15:58 Order name: Setup Suture Tray; Complete Time: 16:19 pm1 Administered Medications: 15:11 Drug: morphine 4 mg {Note: rass 0. pain 10/10.} Route: IVP; Site: left antecubital; ll1 15:30 Follow up: Response: No adverse reaction; Pain is decreased jl7 15:11 Drug: Zofran (Ondansetron) 4 mg Route: IVP; Site: left antecubital; ll1 16:06 Drug: Lidocaine (1 %) 5 ml {Note: administered by WAGNER Lang.} Volume: 5 ml; Route: jl7 Infiltration; 17:12 Follow up: Response: No adverse reaction jl7 16:10 Drug: morphine 4 mg Route: IVP; Site: left antecubital; jl7 16:45 Follow up: Response: No adverse reaction; Pain is decreased jl7 17:12 Not Given (Duplicate Order): morphine 4 mg IVP once jl7 17:19 Drug: Cipro (ciprofloxacin) 500 mg Route: PO; jl7 17:49 Follow up: Response: Medication administered at discharge. jl7 17:20 Drug: [place] (HYDROcodone-acetaminophen) 10 mg-325 mg 1 tabs Route: PO; jl7 17:49 Follow up: Response: Medication administered at discharge. jl7 Disposition: 17:10 Co-signature as Attending Physician, Jhonathan Bee MD I agree with the assessment and kdr plan of care. Disposition Summary: 11/24/21 17:12 Discharge Ordered Location: Home kdr Problem: new kdr Symptoms: have improved kdr Condition: Stable kdr Diagnosis - Unspecified injury of head, initial encounter kdr - Facial Laceration - Forehead kdr Followup: kdr - With: Private Physician - When: 2 - 3 days - Reason: If symptoms return, Further diagnostic work-up, Recheck today's complaints, Continuance of care, Re-evaluation by your physician Discharge Instructions: - Discharge Summary Sheet kdr - Facial Laceration, [id number] kdr - Head Injury, Adult, [id number] kdr - Sutures, Armen, or Adhesive Wound Closure, [id number] kdr - Concussion, Adult, [id number] kdr Forms: - Medication Reconciliation Form kdr - Thank You Letter kdr - Antibiotic Education kdr - Prescription Opioid Use kdr Prescriptions: - Cipro 500 mg Oral Tablet - take 1 tablet by ORAL route every 12 hours for 3 days; 6 tablet; Refills: 0, kdr Product Selection Permitted - Ibuprofen 600 mg Oral Tablet - take 1 tablet by ORAL route every 6 hours As needed take with food; 30 tablet; kdr Refills: 0, Product Selection Permitted - Tylenol-Codeine #3 300 mg-30 mg Oral - take 2 tablet by ORAL route every 4-6 hours As needed; 16 tablet; Refills: 0, kdr Product Selection Permitted Signatures: Dispatcher [employer] EDMS Jhonathan Bee MD MD kdr Rickey Bailey, CARCASS SPLITTER CARCASS SPLITTER pm1 Popeye Tuttle RN RN jl7 Luis Mcwilliams RN RN ll1 Corrections: (The following items were deleted from the chart) 15:30 14:55 Wrist Left 3 View+[email or web address] ordered. EDMS EDMS
--- NOTE | 2021-11-24 17:13 | ER ---
Nurse's Notes [facility] Name: Mitzi Betancourt Age: 31 yrs Sex: Female : 1990 Arrival Date: 11/24/2021 Time: 13:36 Bed 4 Private MD: Diagnosis: Unspecified injury of head, initial encounter;Facial Laceration - Forehead Presentation: 11/24 13:48 Ebola Screen: Patient denies travel to an Ebola-affected area in the 21 days before ll1 illness onset. Onset of symptoms was November 24, 2021. 13:48 Method Of Arrival: EMS ll1 13:48 Acuity: LION 3 ll1 13:48 Care prior to arrival: None. Mechanism of Injury: Fall from ladder approximately 10 jl7 feet. Trauma event details: Injury occurred in the [facility], Injury occurred: at home. Injury occurred: November 24, 2021 Injury occurred at: 13:00. 14:00 Chief complaint: Patient states: Fell approx. 10 feet off unsteady ladder 20 min [employer]INTENA[employer]. ll1 Hit L side of forehead on trim of window. Bruising noted to LLE. Neck and R wrist started hurting on the way here. Unknown LOC, states she doesn't remember everything. Coronavirus screen: Vaccine status: Patient reports receiving the 2nd dose of the covid vaccine. Client denies travel out of the [place] in the last 14 days. At this time, the client does not indicate any symptoms associated with coronavirus-19. Initial Sepsis Screen: Does the patient meet any 2 criteria? No. Patient's initial sepsis screen is negative. Does the patient have a suspected source of infection? Yes: Skin breakdown/wound. Risk Assessment: Do you want to hurt yourself or someone else? Patient reports no desire to harm self or others. 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 N/A - control method jl7 Trauma Activation: Alert Physician: ED Physician; Name: Cristal; Notified At: 13:52; Arrived At: Physician: General Surgeon; Name: ; Notified At: 13:35; Arrived At: Physician: Radiology; Name: Deon; Notified At: 13:35; Arrived At: 13:52 Physician: Respiratory; Name: ; Notified At: 13:35; Arrived At: Physician: Lab; Name: ; Notified At: 13:35; Arrived At: Historical: - Allergies: 13:48 PENICILLINS; ll1 13:48 PORK/PORCINE PRODUCT DERIVATIVES; ll1 - PMHx: 14:03 Asthma; ll1 - PSHx: 14:03 section; Cholecystectomy; endometriosis SX; ll1 - Immunization history:: Client reports receiving the 2nd dose of the Covid vaccine, Last tetanus immunization: up to date. - Social history:: Smoking status: Patient denies any tobacco usage or history of. - Immunization history: Last tetanus immunization: unknown. Screenin:30 Nutritional screening: No deficits noted. Fall Risk IV access (20 points). Total Kohler jl7 Fall Scale indicates No Risk (0-24 pts). 16:45 Abuse screen: Denies threats or abuse. Denies injuries from another. Tuberculosis jl7 screening: No symptoms or risk factors identified. Primary Survey: 13:50 NO uncontrolled hemorrhage observed. Breathing/Chest: Spontaneous respiratory effort, jl7 equal unlabored respirations, breath sounds clear bilaterally, regular pattern, symmetrical chest rise and fall. Circulation: No external hemorrhage present. Regular and strong central pulse, skin warm/dry/normal color. Disability Pupils are equal, round, reactive to light and accommodation. Client is alert. Exposure/Environment: There is no evidence of uncontrolled external bleeding. Obvious injury(ies) are noted at this time: laceration to left side of forehead, abrasion and bruising noted to left lower extremity A warming method has been applied: A warm blanket has been provided to the patient. 14:30 Reassessment Alertness and Airway: Awake and alert. The airway is patent. Breathing: jl7 Spontaneous respiratory effort, equal unlabored respirations, breath sounds clear bilaterally, regular pattern with symmetrical chest rise and fall. Circulation: No external hemorrhage noted. Regular and strong central pulse, skin warm/dry/normal color. Disability: Pupils Pupils are equal, round, reactive to light and accomodation. Alert. Assessment: 13:48 General: Appears in no apparent distress. uncomfortable, Behavior is anxious, crying. jl7 Pain: Complains of pain in [place], right wrist, Left lower extremity Pain currently is 10 out of 10 on a pain scale. Neuro: [place] Agitation-Sedation Scale (RASS): +1 Restless Level of Consciousness is awake, alert, obeys commands, Oriented to person, place, time, situation. Cardiovascular: Patient's skin is warm and dry. Respiratory: Airway is patent Respiratory effort is even, unlabored, Respiratory pattern is regular, symmetrical. Derm: Skin is pink, warm \T\ dry. 15:00 Reassessment: Patient appears in no apparent distress at this time. No changes from jl7 previously documented assessment. Patient and/or family updated on plan of care and expected duration. Pain level reassessed. Patient is alert, oriented x 3, equal unlabored respirations, skin warm/dry/pink. 16:00 Reassessment: Patient appears in no apparent distress at this time. No changes from jl7 previously documented assessment. Patient and/or family updated on plan of care and expected duration. Pain level reassessed. Patient is alert, oriented x 3, equal unlabored respirations, skin warm/dry/pink. 17:00 Reassessment: Patient appears in no apparent distress at this time. No changes from jl7 previously documented assessment. Patient and/or family updated on plan of care and expected duration. Pain level reassessed. Patient is alert, oriented x 3, equal unlabored respirations, skin warm/dry/pink. Vital Signs: 14:00 BP 138 / 125; Pulse 87; Resp 16; Temp 97.9; Pulse Ox 96% on R/A; Weight 108.86 kg; ll1 Height 5 ft. 4 in. (162.56 cm); Pain 10/10; 14:11 BP 117 / 92; ll1 14:30 BP 128 / 78; Pulse 66; Resp 15; Pulse Ox 100% ; jl7 15:15 BP 118 / 61; Pulse 75; Resp 15; Pulse Ox 100% ; jl7 16:00 BP 139 / 78; Pulse 83; Resp 16; Pulse Ox 100% ; jl7 16:45 BP 122 / 62; Pulse 80; Resp 15; Pulse Ox 99% ; jl7 17:48 BP 122 / 59; Pulse 72; Resp 15; Temp 98; Pulse Ox 100% on R/A; jl7 14:00 Body Mass Index 41.20 (108.86 kg, 162.56 cm) ll1 [place] Coma Score: 14:00 Eye Response: spontaneous(4). Verbal Response: oriented(5). Motor Response: obeys jl7 commands(6). Total: 15. 14:30 Eye Response: spontaneous(4). Verbal Response: oriented(5). Motor Response: obeys jl7 commands(6). Total: 15. 15:15 Eye Response: spontaneous(4). Verbal Response: oriented(5). Motor Response: obeys jl7 commands(6). Total: 15. 16:00 Eye Response: spontaneous(4). Verbal Response: oriented(5). Motor Response: obeys jl7 commands(6). Total: 15. 16:45 Eye Response: spontaneous(4). Verbal Response: oriented(5). Motor Response: obeys jl7 commands(6). Total: 15. 17:48 Eye Response: spontaneous(4). Verbal Response: oriented(5). Motor Response: obeys jl7 commands(6). Total: 15. Trauma Score (Adult): 14:00 Eye Response: spontaneous(1); Verbal Response: oriented(1); Motor Response: obeys jl7 commands(2); Systolic BP: > 89 mm Hg(4); Respiratory Rate: 10 to 29 per min(4); Jus Score: 15; Trauma Score: 12 ED Course: 13:36 Patient arrived in ED. eb 13:37 Jhonathan Bee MD is Attending Physician. kdr 13:48 Triage completed. ll1 13:48 Arm band placed on Patient placed in an exam room, on a stretcher. ll1 14:00 Patient maintains SpO2 saturation greater than 95% on room air. Thermoregulation: warm jl7 blanket given to patient. 14:05 Bed in low position. Call light in reach. Side rails up X2. Warm blanket given. tp1 14:05 Inserted saline lock: 20 gauge in left antecubital area, using aseptic technique. Blood tp1 collected. 14:36 CT Traumagram (Head C Spine CAP wo con) In Process Unspecified. EDMS 14:43 Popeye Tuttle, JAIME is Primary Nurse. jl7 15:30 Wrist Right 3 View In Process Unspecified. EDMS 15:31 Tib Fib Left XRAY In Process Unspecified. EDMS 17:50 No provider procedures requiring assistance completed. IV discontinued, intact, jl7 bleeding controlled, No redness/swelling at site. Pressure dressing applied. Administered Medications: 15:11 Drug: morphine 4 mg {Note: rass 0. pain 10/10.} Route: IVP; Site: left antecubital; ll1 15:30 Follow up: Response: No adverse reaction; Pain is decreased jl7 15:11 Drug: Zofran (Ondansetron) 4 mg Route: IVP; Site: left antecubital; ll1 16:06 Drug: Lidocaine (1 %) 5 ml {Note: administered by NP. Rickey} Volume: 5 ml; Route: jl7 Infiltration; 17:12 Follow up: Response: No adverse reaction jl7 16:10 Drug: morphine 4 mg Route: IVP; Site: left antecubital; jl7 16:45 Follow up: Response: No adverse reaction; Pain is decreased jl7 17:12 Not Given (Duplicate Order): morphine 4 mg IVP once jl7 17:19 Drug: Cipro (ciprofloxacin) 500 mg Route: PO; jl7 17:49 Follow up: Response: Medication administered at discharge. jl7 17:20 Drug: [place] (HYDROcodone-acetaminophen) 10 mg-325 mg 1 tabs Route: PO; jl7 17:49 Follow up: Response: Medication administered at discharge. jl7 Medication: 16:30 VIS not applicable for this client. jl7 Intake: 17:48 PO: 0ml; IV: 0ml; Tubes: 0ml (); Total: 0ml. jl7 Output: 17:48 Urine: 0ml; Gastric: 0ml; Stool: 0; EBL: 0ml; Drainage: 0ml; Other: 0; Total: 0ml. jl7 Outcome: 17:12 Discharge ordered by . kdr 17:48 Discharged to home via wheelchair, with family. jl7 17:48 Condition: stable 17:48 Patient's length of stay was not longer than 2 hours. 17:50 Discharge instructions given to patient, family, Instructed on discharge instructions, jl7 follow up and referral plans. medication usage, Demonstrated understanding of instructions, follow-up care, medications, Prescriptions given X 3. 17:51 Patient left the ED. jl7 Signatures: Dispatcher [employer] EDMS Jhonathan Bee MD MD kdr Leal, Jahala, RN RN jl7 Madison Tolliver Lynsay, RN RN ll1 Gudelia Hayes tp1
[2021-11-24] MEDS ORDERED: CIPROFLOXACIN HCL 500 MG TAB ONE (17:19)
[2021-11-24] MEDS ORDERED: HYDROCODONE/APAP 10/325 TAB ONE (17:20)
[2021-11-24 18:08] VITALS: BP 122/59; TEMP 98; O2SAT 100
== END 2021-11-24 17:51 | disposition home or self-care (01) ==
LOC: ER 13:35
PROC: 0JQ10ZZ Repair Face Subcutaneous Tissue and Fascia, Open Approach (ICD-10-PCS; principal; 2021-11-24)
DX: S01.81XA Laceration without foreign body of other part of head, initial encounter (principal); W14.XXXA Fall from tree, initial encounter; Z88.0 Allergy status to penicillin; Z91.014 Allergy to mammalian meats
CPT/HCPCS: 85025; 80048; 36415; 86900; 86850; 86901; 70450; 71250; 72125; 73110; 73590; 96375; 96374; 99284; 12013; J2405